=== PATIENT | male | born 1945 | race Caucasian/White ===

== ENCOUNTER 2018-04-24 13:03 | Emergency (ER) | payer OTHER ==
[2018-04-24] MEDS ORDERED: ALBUTEROL 2.5 MG/3 ML NEB SOL ONE (13:48)
[2018-04-24] MEDS ORDERED: NA CHLORIDE 0.9% 500 ML ONE (13:48)
[2018-04-24] MEDS ORDERED: METHYLPREDNISOLONE 125 MG INJ ONE (13:48)
[2018-04-24] MEDS ORDERED: predniSONE 20 MG TAB ONE (13:48)
[2018-04-24] MEDS ORDERED: IPRATROPIUM BROM 0.5MG/2.5ML ONE (13:48)
--- NOTE | 2018-04-24 14:12 | RAD REPORT ---
EXAM DESCRIPTION: RAD - Chest Pa And Lat (2 Views) - 04/24/2018 2:02 pm CLINICAL HISTORY: COUGH Chest pain. COMPARISON: Chest Single View dated 01/14/2017; Chest Single View dated 01/13/2017; CHEST PA AND LAT 2 VIEW dated 02/28/2013; CHEST SINGLE VIEW dated 11/29/2011 FINDINGS: Ill-defined infiltrate is suspected in the lateral left lung base associated with trace pl eural fluid, likely representing pneumonia. The heart is upper limit normal in size. No displaced fra ctures. Cervical hardware plate is noted. IMPRESSION: Small left lateral lung base pneumonia.
--- NOTE | 2018-04-24 14:27 | EDPHYS ---
Physician Documentation [facility] Name: Fito Oneal Age: 73 yrs Sex: Male : 1945 Arrival Date: 04/24/2018 Time: 13:06 Bed 30 Private MD: Owen Nolan H ED Physician Mulugeta Gorman HPI: 04/24 13:39 This 73 yrs old Male presents to ER via Ambulatory with complaints of lokesh Breathing Difficulty. 13:39 The patient has shortness of breath at rest. Onset: The symptoms/episode began/occurred lokesh 2 day(s) ago. Duration: The symptoms are continuous, and are steadily getting worse. The patient's shortness of breath has no apparent modifying factors. Associated signs and symptoms: The patient has no apparent associated signs or symptoms. Severity of symptoms: At their worst the symptoms were mild moderate in the emergency department the symptoms are unchanged. The patient has not experienced similar symptoms in the past. Historical: - Allergies: 13:12 No Known Allergies; hj - Home Meds: 13:12 lansoprazole 30 mg Oral cpDR 1 cap once daily [Active]; Xarelto 20 mg oral tab 1 tab hj once daily [Active]; Lantus Solostar 100 unit/mL (3 mL) subcutaneous inpn [Active]; atorvastatin 10 mg Oral tab 1 tab once daily [Active]; lisinopril 40 mg Oral tab 1 tab once daily [Active]; furosemide 40 mg Oral tab 1 tab once daily [Active]; tamsulosin 0.4 mg Oral cp24 2 caps once daily [Active]; sotalol 80 mg Oral tab 1 tab daily [Active]; metformin 500 mg Oral Tb24 3 tabs once daily [Active]; gabapentin 300 mg Oral cap 1 cap twice a day [Active]; - PMHx: 13:12 Diabetes - NIDDM; Hypertension; hj - PSHx: 13:12 Heart stents; Left Hand; ACDF; hj - Immunization history:: Adult Immunizations up to date. - Social history:: Smoking status: Patient/guardian denies using tobacco, Patient/guardian denies using alcohol. - Ebola Screening: : Patient negative for fever greater than or equal to 101.5 degrees Fahrenheit, and additional compatible Ebola Virus Disease symptoms Patient denies exposure to infectious person Patient denies travel to an Ebola-affected area in the 21 days before illness onset. - Family history:: not pertinent. ROS: 13:39 Constitutional: Negative for fever, chills, and weight loss, Eyes: Negative for injury, lokesh pain, redness, and discharge, ENT: Negative for injury, pain, and discharge, Neck: Negative for injury, pain, and swelling, Cardiovascular: Negative for chest pain, palpitations, and edema, Abdomen/GI: Negative for abdominal pain, nausea, vomiting, diarrhea, and constipation, Back: Negative for injury and pain, : Negative for injury, bleeding, discharge, and swelling, MS/Extremity: Negative for injury and deformity, Skin: Negative for injury, rash, and discoloration, Neuro: Negative for headache, weakness, numbness, tingling, and seizure, Psych: Negative for depression, anxiety, suicide ideation, homicidal ideation, and hallucinations, Allergy/Immunology: Negative for hives, rash, and allergies, Endocrine: Negative for neck swelling, polydipsia, polyuria, polyphagia, and marked weight changes. 13:39 Respiratory: Positive for cough, shortness of breath, at rest. wheezing, inspiratory, expiratory. Exam: 13:39 Constitutional: This is a well developed, well nourished patient who is awake, alert, lokesh and in no acute distress. Head/Face: Normocephalic, atraumatic. Eyes: Pupils equal round and reactive to light, extra-ocular motions intact. Lids and lashes normal. Conjunctiva and sclera are non-icteric and not injected. Cornea within normal limits. Periorbital areas with no swelling, redness, or edema. ENT: Nares patent. No nasal discharge, no septal abnormalities noted. Tympanic membranes are normal and external auditory canals are clear. Oropharynx with no redness, swelling, or masses, exudates, or evidence of obstruction, uvula midline. Mucous membranes moist. Neck: Trachea midline, no thyromegaly or masses palpated, and no cervical lymphadenopathy. Supple, full range of motion without nuchal rigidity, or vertebral point tenderness. No Meningismus. Chest/axilla: Normal chest wall appearance and motion. Nontender with no deformity. No lesions are appreciated. Cardiovascular: Regular rate and rhythm with a normal S1 and S2. No gallops, murmurs, or rubs. Normal PMI, no JVD. No pulse deficits. Abdomen/GI: Soft, non-tender, with normal bowel sounds. No distension or tympany. No guarding or rebound. No evidence of tenderness throughout. Back: No spinal tenderness. No costovertebral tenderness. Full range of motion. Male : Normal genitalia with no discharge or lesions. Skin: Warm, dry with normal turgor. Normal color with no rashes, no lesions, and no evidence of cellulitis. MS/ Extremity: Pulses equal, no cyanosis. Neurovascular intact. Full, normal range of motion. Neuro: Awake and alert, GCS 15, oriented to person, place, time, and situation. Cranial nerves II-XII grossly intact. Motor strength 5/5 in all extremities. Sensory grossly intact. Cerebellar exam normal. Normal gait. Psych: Awake, alert, with orientation to person, place and time. Behavior, mood, and affect are within normal limits. 13:39 Respiratory: mild respiratory distress is noted, Respirations: labored breathing, that is mild. 13:42 Musculoskeletal/extremity: DVT Exam: No signs of deep vein thrombosis. no pain, no lokesh swelling, no tenderness, negative Homans' sign noted on exam, no appreciated bluish discoloration, no erythema, no increased warmth. Vital Signs: 13:13 BP 149 / 87; Pulse 67; Resp 18; Temp 97.7; Pulse Ox 97% on R/A; Weight 95.25 kg; Height 5 ft. 9 in. (175.26 cm); Pain 0/10; 13:33 BP 144 / 87; Pulse 83; Resp 18; Pulse Ox 97% on R/A; kr2 14:44 BP 162 / 82; Pulse 68; Resp 18; Pulse Ox 100% on R/A; kr2 16:37 BP 148 / 80; Pulse 70; Resp 17; Pulse Ox 100% on R/A; kr2 13:13 Body Mass Index 31.01 (95.25 kg, 175.26 cm) MDM: 13:18 Patient medically screened. [facility] 13:39 Data reviewed: vital signs, nurses notes, lab test result(s), EKG, radiologic studies, [facility] plain films. 04/24 13:39 Order name: Basic Metabolic Panel; Complete Time: 16:02 [facility] 04/24 13:39 Order name: CBC with Diff; Complete Time: 16:02 [facility] 04/24 13:39 Order name: Ckmb; Complete Time: 16:02 [facility] 04/24 13:39 Order name: CPK; Complete Time: 16:02 [facility] 04/24 13:39 Order name: LFT's; Complete Time: 16:02 [facility] 04/24 13:39 Order name: Magnesium; Complete Time: 16:02 [facility] 04/24 13:39 Order name: NT PRO-BNP; Complete Time: 16:02 [facility] 04/24 13:39 Order name: PT-INR; Complete Time: 16:02 [facility] 04/24 13:39 Order name: Ptt, Activated; Complete Time: 16:02 [facility] 04/24 13:39 Order name: Troponin (emerg Dept Use Only); Complete Time: 16:02 [facility] 04/24 13:39 Order name: Blood Culture Adult (2) [facility] 04/24 13:39 Order name: Flu; Complete Time: 16:02 [facility] 04/24 14:11 Order name: TSH; Complete Time: 16:02 [facility] 04/24 16:17 Order name: Urine Dipstick--Ancillary (enter results) 04/24 13:39 Order name: EKG; Complete Time: 13:39 [facility] 04/24 13:39 Order name: Chest Pa And Lat (2 Views) XRAY; Complete Time: 14:17 [facility] 04/24 14:12 Order name: Echo w/ Doppler [facility] 04/24 14:33 Order name: CONS Physician Consult [facility] 04/24 14:33 Order name: CONS Physician Consult [facility] 04/24 16:19 Order name: Procalcitonin; Complete Time: 16:21 [facility] 04/24 16:32 Order name: Urine Dipstick-Ancillary [facility] 04/24 13:39 Order name: Cardiac monitoring; Complete Time: 14:35 [facility] 04/24 13:39 Order name: EKG - Nurse/Tech; Complete Time: 14:35 [facility] 04/24 13:39 Order name: IV Saline Lock; Complete Time: 14:35 [facility] 04/24 13:39 Order name: Labs collected and sent; Complete Time: 14:35 [facility] 04/24 13:39 Order name: O2 Per Protocol; Complete Time: 14:35 [facility] 04/24 13:39 Order name: O2 Sat Monitoring; Complete Time: 14:35 [facility] 04/24 13:39 Order name: Urine Dipstick-Ancillary (obtain specimen); Complete Time: 16:27 lokesh Administered Medications: Discontinued: NS 0.9% 1000 ml IV at 125 ml/hr continuous 14:15 Drug: NS 0.9% 500 ml Route: IV; Rate: bolus; Site: right antecubital; kr2 15:14 Follow up: Response: No adverse reaction; IV Status: Completed infusion kr2 14:15 Drug: Albuterol - atroVENT (3:1) (2.5 mg - 0.5 mg) 3 ml Route: Nebulizer; kr2 15:14 Follow up: Response: No adverse reaction kr2 14:31 Drug: predniSONE 40 mg Route: PO; kr2 15:15 Follow up: Response: No adverse reaction kr2 14:32 Drug: SOLU-Medrol 125 mg Route: IVP; Site: right antecubital; kr2 15:15 Follow up: Response: No adverse reaction kr2 14:42 Drug: Rocephin - (cefTRIAXone) 2 grams Route: IVPB; Infused Over: 30 mins; Site: right kr2 antecubital; 15:14 Follow up: Response: No adverse reaction; IV Status: Completed infusion kr2 15:15 Drug: NS 0.9% 1000 ml Route: IV; Rate: 125 ml/hr; Site: right antecubital; kr2 16:28 Follow up: Response: No adverse reaction; IV Status: Order to discontinue infusion kr2 15:15 Drug: Zithromax 500 mg Route: IVPB; Infused Over: 1 hrs; Site: right antecubital; kr2 16:26 Follow up: Response: No adverse reaction; IV Status: Completed infusion kr2 16:18 CANCELLED (Duplicate Order): Lovenox 1 mg/kg Sub-Q once lokesh 16:26 Drug: Augmentin 875 mg Route: PO; kr2 16:38 Follow up: Response: Medication administered at discharge. kr2 Disposition: 04/24/18 16:24 Patient has left against medical advice. Impression: Dyspnea, Pneumonia due to other specified bacteria, Atrial fibrillation and flutter, Type 2 diabetes mellitus. - Patients states they are going to Home. - Condition is Stable. - Discharge Instructions: Atrial Fibrillation, Type 2 Diabetes Mellitus, Adult, Pneumonia, Adult, Pneumonia, Adult, [id number], Type 2 Diabetes Mellitus, Adult, [id number], Atrial Fibrillation, [id number]. - Prescriptions for Xarelto 20 mg Oral tablet - take 1 tablet by ORAL route once daily; 30 tablet. sotalol 80 mg Oral tablet - take 1 tablet by ORAL route At bedtime; 30 tablet. Augmentin 875- 125 mg Oral Tablet - take 1 tablet by ORAL route every 12 hours for 10 days; 20 tablet. Albuterol Sulfate 2.5 mg /3 mL (0.083 %) Inhalation Solution for Nebulization - inhale 1 unit by NEBULIZATION route every 8 hours As needed; 1 box. Prednisone 20 mg Oral Tablet - take 2 tablet by ORAL route once daily for 5 days; 10 tablet. Albuterol Sulfate 90 mcg/actuation - inhale 1-2 puff by INHALATION route every 4-6 hours; 1 Inhaler. Follow up: Owen Nolan DO; When: 2 - 3 days; Reason: Recheck today's complaints, Continuance of care, Re-evaluation by your physician. Follow up: Hugo Up MD; When: 2 - 3 days; Reason: Recheck today's complaints, Continuance of care, Re-evaluation by your physician. - Problem is new. - Symptoms have improved. Signatures: Dispatcher [employer] EDMS Mulugeta Gorman MD MD cha Gallardo, Ana ag Joaquin, Henry, RN RN Donna Gonzalez RN RN kr2 Corrections: (The following items were deleted from the chart) 15:35 14:26 Hospitalization Ordered by Mariana Vick MD for Inpatient Admission. Preliminary ag diagnosis is Dyspnea, unspecified; Dyspnea; Chronic obstructive pulmonary disease with (acute) exacerbation; Atrial fibrillation and flutter; Unspecified bacterial pneumonia. Bed requested for Telemetry/MedSurg (Inpatient). Status is Inpatient Admission. Condition is Fair. Problem is new. Symptoms have improved. UTI on Admission? No. lokesh 16:18 16:02 Lovenox 1 mg/kg Sub-Q once ordered. [facility] 16:22 15:35 04/24/2018 14:26 Hospitalization Ordered by Mariana Vick MD for Inpatient lokesh Admission. Preliminary diagnosis is Dyspnea, unspecified; Dyspnea; Chronic obstructive pulmonary disease with (acute) exacerbation; Atrial fibrillation and flutter; Unspecified bacterial pneumonia. Bed requested for Telemetry/MedSurg (Inpatient). Status is Inpatient Admission. Condition is Fair. Problem is new. Symptoms have improved. UTI on Admission? No. ag 16:38 16:24 04/24/2018 16:24 Patients has left against medical advice. Impression: Dyspnea; kr2 Pneumonia due to other specified bacteria; Atrial fibrillation and flutter; Type 2 diabetes mellitus. Patient states they are going to Home. Condition is Stable. Prescriptions for Albuterol Sulfate 2.5 mg /3 mL (0.083 %) Inhalation Solution for Nebulization - inhale 1 unit by NEBULIZATION route every 8 hours As needed; 1 box, Prednisone 20 mg Oral Tablet - take 2 tablet by ORAL route once daily for 5 days; 10 tablet, Albuterol Sulfate 90 mcg/actuation - inhale 1-2 puff by INHALATION route every 4-6 hours; 1 Inhaler, Zithromax 500 mg Oral Tablet - take 1 tablet by ORAL route once daily for 5 days; 5 tabletFollow up: Owen Nolan; When: 2 - 3 days; Reason: Recheck today's complaints, Continuance of care, Re-evaluation by your physician. Follow up: Hugo Up; When: 2 - 3 days; Reason: Recheck today's complaints, Continuance of care, Re-evaluation by your physician. Problem is new. Symptoms have improved. lokesh
--- NOTE | 2018-04-24 14:27 | ER ---
Nurse's Notes [facility] Name: Fito Oneal Age: 73 yrs Sex: Male : 1945 Arrival Date: 04/24/2018 Time: 13:06 Bed 30 Private MD: Owen Nolan H Diagnosis: Dyspnea;Pneumonia due to other specified bacteria;Atrial fibrillation and flutter;Type 2 diabetes mellitus Presentation: 04/24 13:08 Presenting complaint: Patient states: 9 days ago, i started having cough and SOB, hj productive cough with whitish yellow phlegm, reports fever and chills; took allergy meds but helping;. Transition of care: patient was not received from another setting of care. Onset of symptoms was April 24, 2018. Risk Assessment: Do you want to hurt yourself or someone else? Patient reports no desire to harm self or others. Initial Sepsis Screen: Does the patient meet any 2 criteria? No. Patient's initial sepsis screen is negative. Does the patient have a suspected source of infection? No. Patient's initial sepsis screen is negative. Care prior to arrival: None. 13:08 Method Of Arrival: Ambulatory 13:08 Acuity: DARON 3 hj Triage Assessment: 13:13 General: Appears in no apparent distress. uncomfortable, Behavior is calm, cooperative, hj appropriate for age. Pain: Denies pain. Respiratory: Reports cough that is Onset: The symptoms/episode began/occurred the patient has mild shortness of breath. Historical: - Allergies: 13:12 No Known Allergies; hj - Home Meds: 13:12 lansoprazole 30 mg Oral cpDR 1 cap once daily [Active]; Xarelto 20 mg oral tab 1 tab hj once daily [Active]; Lantus Solostar 100 unit/mL (3 mL) subcutaneous inpn [Active]; atorvastatin 10 mg Oral tab 1 tab once daily [Active]; lisinopril 40 mg Oral tab 1 tab once daily [Active]; furosemide 40 mg Oral tab 1 tab once daily [Active]; tamsulosin 0.4 mg Oral cp24 2 caps once daily [Active]; sotalol 80 mg Oral tab 1 tab daily [Active]; metformin 500 mg Oral Tb24 3 tabs once daily [Active]; gabapentin 300 mg Oral cap 1 cap twice a day [Active]; - PMHx: 13:12 Diabetes - NIDDM; Hypertension; hj - PSHx: 13:12 Heart stents; Left Hand; ACDF; hj - Immunization history:: Adult Immunizations up to date. - Social history:: Smoking status: Patient/guardian denies using tobacco, Patient/guardian denies using alcohol. - Ebola Screening: : Patient negative for fever greater than or equal to 101.5 degrees Fahrenheit, and additional compatible Ebola Virus Disease symptoms Patient denies exposure to infectious person Patient denies travel to an Ebola-affected area in the 21 days before illness onset. - Family history:: not pertinent. Screenin:12 Abuse screen: Denies threats or abuse. Denies injuries from another. Nutritional hj screening: No deficits noted. Tuberculosis screening: No symptoms or risk factors identified. Fall Risk None identified. Assessment: 13:13 Respiratory: Airway is patent Respiratory effort is even, unlabored, Respiratory hj pattern is regular, symmetrical, 13:13 Cardiovascular: Rhythm is. hj 13:30 General: Appears in no apparent distress. comfortable, well groomed, well developed, kr2 well nourished, Behavior is calm, cooperative, appropriate for age. Pain: Denies pain. Neuro: Level of Consciousness is awake, alert, obeys commands, Oriented to person, place, time, situation. Cardiovascular: Heart tones S1 S2 Capillary refill < 3 seconds in bilateral fingers Patient's skin is warm and dry. Rhythm is regular. Respiratory: Airway is patent Respiratory effort is even, unlabored, Respiratory pattern is regular, symmetrical. Respiratory: Reports cough that is productive, since 9 days ago. GI: Abdomen is round non-distended. : No signs and/or symptoms were reported regarding the genitourinary system. EENT: Reports nasal discharge that is watery since 9 days ago. Derm: Skin is intact, is healthy with good turgor, Skin is pink, warm \T\ dry. Musculoskeletal: Circulation, motion, and sensation intact. 14:30 Reassessment: Patient appears in no apparent distress at this time. Patient is alert, kr2 oriented x 3, equal unlabored respirations, skin warm/dry/pink. Patient denies pain at this time. 15:26 Reassessment: Patient appears in no apparent distress at this time. Patient is alert, kr2 oriented x 3, equal unlabored respirations, skin warm/dry/pink. Patient denies pain at this time. 16:15 Reassessment: Patient states that there is no way for him to stay in the hospital kr2 because he has to pick his grandkids and there is no one else to pick them up otherwise he would stay. Dr. Gorman notified. AMA form signed. 16:35 Reassessment: Patient appears in no apparent distress at this time. Patient is alert, kr2 oriented x 3, equal unlabored respirations, skin warm/dry/pink. Patient denies pain at this time. Patient states feeling better. Vital Signs: 13:13 BP 149 / 87; Pulse 67; Resp 18; Temp 97.7; Pulse Ox 97% on R/A; Weight 95.25 kg; Height hj 5 ft. 9 in. (175.26 cm); Pain 0/10; 13:33 BP 144 / 87; Pulse 83; Resp 18; Pulse Ox 97% on R/A; kr2 14:44 BP 162 / 82; Pulse 68; Resp 18; Pulse Ox 100% on R/A; kr2 16:37 BP 148 / 80; Pulse 70; Resp 17; Pulse Ox 100% on R/A; kr2 13:13 Body Mass Index 31.01 (95.25 kg, 175.26 cm) ED Course: 13:06 Patient arrived in ED. rg4 13:07 Owen Nolan DO is Private Physician. rg4 13:10 Triage completed. hj 13:13 Arm band placed on right wrist. hj 13:13 Patient has correct armband on for positive identification. Bed in low position. Call light in reach. Side rails up X 1. 13:18 Donna Gonzalez, RN is Primary Nurse. kr2 13:18 Mulugeta Gorman MD is Attending Physician. [facility] [place] 13:57 Patient moved to radiology via wheelchair. 1 13:58 X-ray completed. Patient tolerated procedure well. Patient moved back from radiology. 1 13:58 EKG done, by wastewater technician. reviewed by Mulugeta Gorman MD. at1 14:01 Chest Pa And Lat (2 Views) XRAY In Process Unspecified. EDMS 14:15 Inserted saline lock: 20 gauge in right antecubital area, using aseptic technique. kr2 Blood collected. 14:25 Mariana Vick MD is Hospitalizing Provider. lokesh 16:22 Owen Nolan DO is Referral Physician. lokesh 16:23 Hugo Up MD is Referral Physician. lokesh 16:36 No provider procedures requiring assistance completed. IV discontinued, intact, kr2 bleeding controlled, No redness/swelling at site. Pressure dressing applied. Administered Medications: Discontinued: NS 0.9% 1000 ml IV at 125 ml/hr continuous 14:15 Drug: NS 0.9% 500 ml Route: IV; Rate: bolus; Site: right antecubital; kr2 15:14 Follow up: Response: No adverse reaction; IV Status: Completed infusion kr2 14:15 Drug: Albuterol - atroVENT (3:1) (2.5 mg - 0.5 mg) 3 ml Route: Nebulizer; kr2 15:14 Follow up: Response: No adverse reaction kr2 14:31 Drug: predniSONE 40 mg Route: PO; kr2 15:15 Follow up: Response: No adverse reaction kr2 14:32 Drug: SOLU-Medrol 125 mg Route: IVP; Site: right antecubital; kr2 15:15 Follow up: Response: No adverse reaction kr2 14:42 Drug: Rocephin - (cefTRIAXone) 2 grams Route: IVPB; Infused Over: 30 mins; Site: right kr2 antecubital; 15:14 Follow up: Response: No adverse reaction; IV Status: Completed infusion kr2 15:15 Drug: NS 0.9% 1000 ml Route: IV; Rate: 125 ml/hr; Site: right antecubital; kr2 16:28 Follow up: Response: No adverse reaction; IV Status: Order to discontinue infusion kr2 15:15 Drug: Zithromax 500 mg Route: IVPB; Infused Over: 1 hrs; Site: right antecubital; kr2 16:26 Follow up: Response: No adverse reaction; IV Status: Completed infusion kr2 16:18 CANCELLED (Duplicate Order): Lovenox 1 mg/kg Sub-Q once lokesh 16:26 Drug: Augmentin 875 mg Route: PO; kr2 16:38 Follow up: Response: Medication administered at discharge. kr2 Outcome: 14:26 Decision to Hospitalize by Provider. lokesh 16:36 Discharged to home ambulatory. kr2 16:36 Condition: good 16:36 Discharge instructions given to patient, Instructed on discharge instructions, follow up and referral plans. medication usage, Demonstrated understanding of instructions, follow-up care, medications, Prescriptions given X 7 16:38 Patient left the ED. kr2 Signatures: Dispatcher [employer] EDMS Mulugeta Gorman MD MD cha Harvey, Martha 1 Gladys nicholas, jammer operator EKG Tat1 Rico Castillo RN RN Jennifer Morataya 4 Donna Gonzalez RN RN kr2 Corrections: (The following items were deleted from the chart) 13:16 13:13 Pulse 67bpm; Resp 18bpm; Pulse Ox 97% RA; Temp 97.7F; 95.25 kg; Height 5 ft. 9 hj in.; BMI: 31.0; Pain 0/10; hj 14:48 14:44 BP 182 / 106; Pulse 68bpm; Resp 18bpm; Pulse Ox 100% RA; kr2 kr2
[2018-04-24 14:39] LABS: Absolute Lymphocytes (CBC) 1.2 K/uL (0.7-4.9); Absolute Monocytes 0.4 K/uL (0.1-1.3); Basophils % 0.7 % (0-1.3); Eosinophils % 2.9 % (0-4.4); Lymphocytes % 20.8 % (15.3-44.8); MCH 30.6 pg (27.0-35.0); MCV 93.7 fL (80-100); MPV 9.5 fL (7.6-11.3); Monocytes % 6.8 % (3.3-12.3); RBC Red Blood Cell Count 5.12 M/uL (4.33-5.43)
[2018-04-24] MEDS ORDERED: AZITHROMYCIN 500 MG/250 ML BAG ONE (14:41)
[2018-04-24] MEDS ORDERED: CEFTRIAXONE/SWI 1gm 1 GM/10 ML SYR ONE (14:41)
[2018-04-24 14:43] LABS: Protime INR 1.53
[2018-04-24] MEDS ORDERED: ACETAMINOPHEN 500 MG TAB PO PRN (14:54)
[2018-04-24] MEDS ORDERED: ONDANSETRON 4 MG/2 ML VIAL IV PRN (14:54)
[2018-04-24] MEDS ORDERED: GLUCAGON 1 MG/VIAL IM PRN (14:59)
[2018-04-24] MEDS ORDERED: D50W 25 GM/50 ML SYRINGE IV PRN (14:59)
[2018-04-24 15:03] LABS: Albumin 3.5 g/dL (3.4-5.0); Bilirubin Direct 0.2 mg/dL (0-0.2); Bilirubin Total 0.4 mg/dL (0.2-1.0); CKMB Creatine Kinase MB 2.7 ng/mL (0.3-3.6); Magnesium 1.9 mg/dL (1.8-2.4); Potassium 4.7 mmol/L (3.5-5.1); Protein, Total 7.2 g/dL (6.4-8.2)
--- NOTE | 2018-04-24 15:18 | P.HP ---
Certification for Inpatient Patient admitted to: Observation With expected LOS: <2 Midnights Patient will require the following post-hospital care: None Practitioner: I am a practitioner with admitting privileges, knowledge of patient current condition, hospital course, and medical plan of care. Services: Services provided to patient in accordance with Admission requirements found in Title 42 Section 412.3 of the Code of Federal Regulations Patient History Date of Service: 04/24/18 Primary Care Provider: Dr Nolan, Cardio - Dr Gresham Reason for admission: COPD exacerbation History of Present Illness: 73 y/o M with significant H/o COPD, Afib, HTN and DM who presented to the ED with SOB. SOB started 2 days ago and progressively worse. Reports of having cough, congestion and white yellowish Phelgm. Also complains of having some fever and chills at home. Took allergy medication and felt better but then got worse and decided to come to the ER. No other complains to offer. Denies N/V/CP at this time. Allergies No Known Allergies Allergy (Unverified 11/29/11 08:41) Home Medications: Flomax 0.4 mg PO DAILY 11/29/11 Gabapentin 300 mg PO BID 11/29/11 Lipitor 10 mg PO DAILY 11/29/11 Metformin HCl 500 mg PO DAILY 11/29/11 Niaspan 500 mg PO BID 11/29/11 Plavix 75 mg PO DAILY 11/29/11 Aspirin [Ecotrin] 325 mg PO DAILY #0 tablet. 12/01/11 Lantus 20 units SQ BREAKFAST #1 12/01/11 Sotalol HCl [Betapace*] 80 mg PO DAILY 01/13/17 Furosemide 40 mg PO DAILY PRN #15 tablet 01/14/17 - Past Medical/Surgical History Diabetic: Yes -: high blood pressure -: diabetes -: Afib -: CHF -: heart stent -: neck fusion -: right hand surgery - Family History Mother -: Lung disease Notes: mesothelioma Father -: Diabetes, Cancer - Social History Alcohol use: No CD- Drugs: No Caffeine use: No Review of Systems General: As per HPI Physical Examination - Physical Exam General: Alert, In no apparent distress, Acute distress HEENT: Atraumatic Neck: Supple, 2+ carotid pulse no bruit, No LAD, Without JVD or thyroid abnormality Respiratory: Normal air movement, Expiratory wheezes, Inspiratory wheezes Cardiovascular: Regular rate/rhythm, Normal S1 S2 Gastrointestinal: Normal bowel sounds, No tenderness Musculoskeletal: No tenderness Integumentary: No rashes Neurological: Normal speech, Normal strength at 5/5 x4 extr, Normal tone Lymphatics: No axilla or inguinal lymphadenopathy - Studies Laboratory Data (last 24 hrs) 04/24/18 14:15: PT 18.1 H, INR 1.53, APTT 30.0 04/24/18 14:15: WBC 5.8, Hgb 15.7, Hct 48.0, Plt Count 165 04/24/18 14:15: Sodium 142, Potassium 4.7, BUN 29 H, Creatinine 1.40 H, Glucose 184 H, Magnesium 1.9, Total Bilirubin 0.4, AST 17, ALT 27, Alkaline Phosphatase 99 Assessment and Plan - Problems (Diagnosis) (1) COPD (chronic obstructive pulmonary disease) Status: Acute Plan: COPD exacerbation. Most likely viral illness. -Procal Pending -Xray with Small lung base PNA -Duonebs, steriods and oxygen -IV antibiotics till procal -Sputum Culture -Pulm Consulted. Qualifiers: COPD type: COPD with acute exacerbation Qualified Code(s): J44.1 - Chronic obstructive pulmonary disease with (acute) exacerbation (2) PNA (pneumonia) Status: Acute Plan: PNA on the xray -IV abx for now -Procal and culture pending Qualifiers: Pneumonia type: due to unspecified organism (3) A-fib Status: Chronic Plan: Chronic Afib -On sotalol and Anticoagulation -Restart here Qualifiers: Atrial fibrillation type: chronic Qualified Code(s): I48.2 - Chronic atrial fibrillation (4) HTN (hypertension) Status: Chronic Plan: BP stable -Restart home medication Qualifiers: Hypertension type: essential hypertension Qualified Code(s): I10 - Essential (primary) hypertension (5) Diabetes Status: Chronic Plan: ISS Qualifiers: Diabetes mellitus type: type 2 Diabetes mellitus exterminator termite insulin use: without exterminator termite use Diabetes mellitus complication status: without complication Qualified Code(s): E11.9 - Type 2 diabetes mellitus without complications Discharge Plan: Home Plan to discharge in: 48 Hours - Advance Directives Does patient have a Living Will: Yes Does patient have a Durable POA for Healthcare: Yes - Code Status/Comfort Care Code Status Assessed: Yes Critical Care: No
--- NOTE | 2018-04-24 15:36 | ECHO ---
HEIGHT: 5 ft 9 in WEIGHT: 210 lb oz DATE OF STUDY: 04/24/[address]: Mulugeta Gorman MD 2-DIMENSIONAL: YES M.MODE: YES DOPPLER: YES COLOR FLOW: YES TDS: NO PORTABLE: NO DEFINITY: NO BUBBLE STUDY: NO DIAGNOSIS: ATRIAL FIBRILLATION CARDIAC HISTORY: CATHERIZATION: NO SURGERY: NO PROSTHETIC VALVE: NO PACEMAKER: NO MEASUREMENTS (cm) DIASTOLIC (NORMALS) SYSTOLIC (NORMALS) IVSd 1.0 (0.6-1.2) LA Diam 4.0 (1.9-4.0) LVEF 71% LVIDd 4.6 (3.5-5.7) LVIDs 2.7 (2.0-3.5) %FS 40% LVPWd 1.3 (0.6-1.2) Ao Diam 2.9 (2.0-3.7) 2 DIMENSIONAL ASSESSMENT: RIGHT ATRIUM: NORMAL LEFT ATRIUM: NORMAL RIGHT VENTRICLE: NORMAL LEFT VENTRICLE: NORMAL SIZE TRICUSPID VALVE: NORMAL MITRAL VALVE: MITRAL ANNULAR CALCIFICATION PULMONIC VALVE: NORMAL AORTIC VALVE: NORMAL PERICARDIAL EFFUSION: NONE AORTIC ROOT: NORMAL LEFT VENTRICULAR WALL MOTION: NORMAL EJECTION FRACTION, DECREASED LEFT VENTRICULAR COMPLIANCE. DOPPLER/COLOR FLOW: MILD TRICUSPID REGURGITATION. COMMENTS: DECREASED LEFT VENTRICULAR COMPLIANCE. NORMAL EJECTION FRACTION WITH LEFT VENTRICULAR SIZE. MILD TRICUSPID REGURGITATION. ATRIAL FIBRILLATION. MODERATE PULMONARY HYPERTENSION, RIGHT VENTRICULAR SYSTOLIC PRESSURE 50mmHg. NO THROMBUS. TECHNOLOGIST: DALI HAN
[2018-04-24] MEDS ORDERED: Levofloxacin500mg IV 500 MG/100 ML BAG IV SCH (16:00)
[2018-04-24] MEDS ORDERED: ENOXAPARIN 40 MG/0.4 ML SQ SCH (16:00)
[2018-04-24] MEDS ORDERED: AMOX/K CLAV 875 MG TAB ONE (16:29)
[2018-04-24] MEDS ORDERED: INSULIN -REGULAR HUMAN 50 UNIT/0.5 ML ML SQ SCH (16:30)
[2018-04-24 16:32] LABS: Urine Blood NEGATIVE (NEG); Urine Glucose NEGATIVE (NEG); Urine Protein NEGATIVE (NEG); Urine pH 5.5 (5.0-7.0)
[2018-04-24 16:42] VITALS: TEMP 97.7
[2018-04-24 16:44] VITALS: O2SAT 100
[2018-04-24 16:45] VITALS: BP 148/80
[2018-04-24] MEDS ORDERED: IPRATROPIUM BROM 0.5MG/2.5ML NEB SCH (20:00)
[2018-04-24] MEDS ORDERED: LEVALBUTEROL 0.63 MG/3 ML NEB NEB SCH (20:00)
[2018-04-24] MEDS ORDERED: predniSONE 10 MG TAB PO SCH (21:00)
--- NOTE | 2018-04-25 09:25 | EKG ---
Test Date: 2018-04-24 Test Time: 13:49:22 Registered Land Surveyor: MILLICENT MEASUREMENT RESULTS: Intervals: Rate: 62 RI: QRSD: 72 QT: 394 QTc: 399 [place]: P: RI: QRS: 11 T: 62 INTERPRETIVE STATEMENTS: Atrial fibrillation Abnormal ECG Compared to ECG 01/14/2017 05:58:43 Sinus bradycardia no longer present Electronically Signed On 04-25-18 09:23:24 CDT by Imer Gresham
== END 2018-04-24 16:38 | disposition left against medical advice (07) ==
LOC: ER 13:03 → ERHOLD 14:28 → UNDOADMIN 14:28 → ER 16:38
DX: J15.8 Pneumonia due to other specified bacteria (principal); I48.91 Unspecified atrial fibrillation; I48.92 Unspecified atrial flutter; E11.9 Type 2 diabetes mellitus without complications; I10 Essential (primary) hypertension; Z95.818 Presence of other cardiac implants and grafts; Z79.4 Long term (current) use of insulin; Z79.01 Long term (current) use of anticoagulants
CPT/HCPCS: 36415; 71046; 80048; 80076; 81003; 82550; 82553; 83735; 83880; 84145; 84443; 84484; 85025; 85610; 85730; 87040 ×2; 87804 ×2; 93005; 93306; J0456; J0696; J2930; 94640; 96361; 96365; 96367; 96375; 99284; J7512

== ENCOUNTER 2018-08-23 13:56 | Inpatient (IN) | payer OTHER ==
[2018-08-23] MEDS ORDERED: FUROSEMIDE 40 MG/4 ML VIAL ONE (15:01)
[2018-08-23 15:12] LABS: Absolute Lymphocytes (CBC) 0.5 K/uL (0.7-4.9); Absolute Monocytes 0.6 K/uL (0.1-1.3); Absolute Neutrophil 9.2 K/uL (1.8-8.0); Basophils % 0.3 % (0-1.3); Hematocrit 49.8 % (39.6-49.0); Lymphocytes % 4.8 % (15.3-44.8); MCH 31.6 pg (27.0-35.0); MCV 93.8 fL (80-100); MPV 9.8 fL (7.6-11.3); Monocytes % 5.7 % (3.3-12.3)
[2018-08-23 15:30] LABS: ALT/SGPT 38 U/L (12-78); AST/SGOT 32 U/L (15-37); Albumin 3.4 g/dL (3.4-5.0); Alkaline Phosphatase 91 U/L (45-117); BUN Blood Urea Nitrogen 52 mg/dL (7-18); Bicarbonate 32 mmol/L (21-32); Bilirubin Direct 0.6 mg/dL (0-0.2); Bilirubin Total 1.3 mg/dL (0.2-1.0); NT PRO-BNP 3107 pg/mL (<450); Potassium 4.3 mmol/L (3.5-5.1); Protein, Total 8.8 g/dL (6.4-8.2); Sodium Level 128 mmol/L (136-145); Troponin (Emerg Dept Use Only) < 0.02 ng/mL (0.0-0.045)
[2018-08-23 15:32] LABS: Glucose Level 431 mg/dL (74-106)
--- NOTE | 2018-08-23 16:09 | RAD REPORT ---
EXAM DESCRIPTION: RAD - Chest Single View - 08/23/2018 3:22 pm CLINICAL HISTORY: Shortness of breath, bilateral lower extremity swelling, congestion, dyspnea COMPARISON: April 24, 2018 TECHNIQUE: AP portable chest image was obtained 1516 hours . FINDINGS: No focal mass or consolidation. Interstitial markings are prominent, similar or slightly i ncreased over comparison. Trachea is midline. Heart and vasculature are normal. No measurable pleural effusion and no pneumothorax. No acute bony abnormality seen. No acute aortic findings suspected. IMPRESSION: Prominent interstitial markings similar or slightly increased over comparison. Early interstitial edema or infiltrate suspected, particularly right base.
--- NOTE | 2018-08-23 16:47 | ER ---
Nurse's Notes [facility] Name: Fito Oneal Age: 73 yrs Sex: Male : 1945 Arrival Date: 08/23/2018 Time: 14:00 Bed 20 Private MD: Owen Nolan H Diagnosis: Unspecified combined systolic (congestive) and diastolic (congestive) heart failure;Pulmonary edema;Dyspnea, unspecified Presentation: 08/23 14:25 Presenting complaint: Patient states: SOB, BLE swelling, congestion, productive cough x sv 2 days. Transition of care: patient was not received from another setting of care. Onset of symptoms was August 20, 2018. Care prior to arrival: None. 14:25 Method Of Arrival: Wheelchair sv 14:25 Acuity: DARON 3 sv 19:18 Risk Assessment: Do you want to hurt yourself or someone else? Patient reports no jd3 desire to harm self or others. Initial Sepsis Screen: Does the patient meet any 2 criteria? No. Patient's initial sepsis screen is negative. Does the patient have a suspected source of infection? No. Patient's initial sepsis screen is negative. Historical: - Allergies: 14:26 No Known Allergies; sv - PMHx: 14:26 Diabetes - NIDDM; Hypertension; sv 14:35 CHF; sv - PSHx: 14:26 Heart stents; Left Hand; ACDF; sv - Immunization history:: Flu vaccine is up to date. - Social history:: Smoking status: Patient/guardian denies using tobacco. - Ebola Screening: : No symptoms or risks identified at this time. - Family history:: not pertinent. - Hospitalizations: : No recent hospitalization is reported. Screenin:58 Abuse screen: Denies threats or abuse. Denies injuries from another. Nutritional aj screening: No deficits noted. Tuberculosis screening: No symptoms or risk factors identified. Fall Risk None identified. Assessment: 14:58 General: Appears in no apparent distress. comfortable, Behavior is calm, cooperative, aj appropriate for age. Pain: Denies pain. Neuro: Level of Consciousness is awake, alert, obeys commands, Oriented to person, place, time, situation, Appropriate for age. Cardiovascular: Denies chest pain, Capillary refill < 3 seconds in bilateral fingers Patient's skin is warm and dry. Respiratory: Reports shortness of breath cough that is productive, Airway is patent Respiratory effort is even, unlabored, Respiratory pattern is regular, symmetrical, Breath sounds with crackles bilaterally. the patient has moderate shortness of breath. GI: No signs and/or symptoms were reported involving the gastrointestinal system. Derm: Skin is intact, is healthy with good turgor, Skin is pink, warm \T\ dry. normal. 16:26 Reassessment: Patient appears in no apparent distress at this time. No changes from aj previously documented assessment. Patient and/or family updated on plan of care and expected duration. Pain level reassessed. Patient is alert, oriented x 3, equal unlabored respirations, skin warm/dry/pink. Patient denies pain at this time. Patient states symptoms have improved. 17:49 Reassessment: Patient appears in no apparent distress at this time. Patient and/or aj family updated on plan of care and expected duration. Pain level reassessed. Patient is alert, oriented x 3, equal unlabored respirations, skin warm/dry/pink. Patient has productive cough that continues but reports that he is feeling better since he arrived Patient states feeling better. Patient states symptoms have improved. 19:15 Reassessment: Patient appears in no apparent distress at this time. No changes from jd3 previously documented assessment. Patient and/or family updated on plan of care and expected duration. Pain level reassessed. Patient is alert, oriented x 3, equal unlabored respirations, skin warm/dry/pink. 20:00 Reassessment: Patient appears in no apparent distress at this time. No changes from jd3 previously documented assessment. Patient and/or family updated on plan of care and expected duration. Pain level reassessed. Patient is alert, oriented x 3, equal unlabored respirations, skin warm/dry/pink. report given to Orin SHEPPARD. Vital Signs: 14:27 BP 119 / 67; Pulse 94; Resp 22; Temp 97.1; Pulse Ox 85% on R/A; Weight 95.25 kg; Height sv 5 ft. 8 in. (172.72 cm); Pain 0/10; 15:55 BP 118 / 76; Pulse 97 MON; Resp 20; Pulse Ox 99% on 3 lpm NC; aj 16:26 BP 124 / 84; Pulse 96; Resp 22; Pulse Ox 98% on 3 lpm NC; aj 17:49 BP 120 / 59; Pulse 98; Resp 19; Pulse Ox 100% on 3 lpm NC; aj 18:38 BP 121 / 67; Pulse 97 MON; Resp 25; Pulse Ox 98% on 3 lpm NC; aj 19:15 BP 118 / 70; Pulse 102; Resp 16 S; Pulse Ox 96% on 3 lpm NC; jd3 20:02 BP 127 / 77; Pulse 101; Resp 18 S; Pulse Ox 95% on 3 lpm NC; jd3 14:27 Body Mass Index 31.93 (95.25 kg, 172.72 cm) sv 15:55 A fib aj 18:38 A fib aj 14:27 Pt placed on O2 \T\ 2L per NC. O2 sat up to 94%. sv ED Course: 14:00 Patient arrived in ED. mr 14:00 Owen Nolan DO is Private Physician. mr 14:26 Triage completed. sv 14:42 Kin Ye MD is Attending Physician. rn 14:44 Gladys Ferreira RN is Primary Nurse. aj 14:50 Initial lab(s) drawn, by me, sent to lab. First set of blood cultures drawn by me, Flu mh5 and/or RSV swab sent to lab. 14:58 Patient has correct armband on for positive identification. Placed in gown. Bed in low aj position. Call light in reach. Side rails up X 1. Adult w/ patient. ramp supervisor on. Pulse ox on. NIBP on. 14:59 Inserted saline lock: 20 gauge in right antecubital area, using aseptic technique. mh5 Blood collected. 15:00 Inserted saline lock: 20 gauge in right antecubital area, using aseptic technique. aj Blood collected. By Nisa library assistant. 15:03 Blood Culture Adult (2) Sent. mh5 15:03 BMP Sent. mh5 15:03 CBC with Diff Sent. mh5 15:03 Hepatic Function Sent. mh5 15:03 NT PRO-BNP Sent. mh5 15:03 Troponin (emerg Dept Use Only) Sent. mh5 15:05 Second set of blood cultures drawn by me. mh5 15:13 EKG done, by plant maintenance technician. reviewed by Kin Ye MD. at1 15:22 XRAY CXR (1 view) In Process Unspecified. EDMS 16:46 Aguilar Alvarez MD is Hospitalizing Provider. rn 19:18 Arm band placed on. jd3 20:00 No provider procedures requiring assistance completed. Patient admitted, IV remains in jd3 place. Administered Medications: 14:57 Drug: Lasix 40 mg Route: IVP; Site: right antecubital; aj Outcome: 16:46 Decision to Hospitalize by Provider. rn 20:01 Admitted to Tele accompanied by tech, via wheelchair, room 212, with oxygen, with jd3 chart, Report called to Orin SHEPPARD 20:01 Condition: stable 20:01 Instructed on the need for admit, Demonstrated understanding of instructions. 20:22 Patient left the ED. jd3 Signatures: Dispatcher [employer] EDMS Kimberley Moe RN RN sv Myers, Amanda, RN RN aj Rivera, Kin Paz MD MD rn Gonzales, Amanda, dormitory keeper EKG Tat1 Dominic, Heike mh5 Juan Pablo Park RN RN jd3 Corrections: (The following items were deleted from the chart) 14:35 14:27 BP 119 / 67; Pulse 94bpm; Resp 22bpm; Pulse Ox 88% RA; Temp 97.1F; 95.25 kg; sv Height 5 ft. 8 in.; BMI: 31.9; Pain 0/10; sv 15:55 15:55 BP 118 / 76; Pulse 97bpm; Monitor: A fibResp 20bpm; Pulse Ox 99% RA; aj aj
--- NOTE | 2018-08-23 16:47 | EDPHYS ---
Physician Documentation [facility] Name: Fito Oneal Age: 73 yrs Sex: Male : 1945 Arrival Date: 08/23/2018 Time: 14:00 Bed 20 Private MD: Owen Nolan H ED Physician Kin Ye HPI: 08/23 15:20 This 73 yrs old Male presents to ER via Wheelchair with complaints of Sob. rn 15:20 The patient has shortness of breath at rest. rn 15:22 Onset: The symptoms/episode began/occurred 2 day(s) ago. Duration: The symptoms are rn continuous. Severity of symptoms: At their worst the symptoms were moderate in the emergency department the symptoms are unchanged. The patient has experienced similar episodes in the past. REports sob and cough for 2-3 days, no fever, feels similar to previous episodes when had fluid overload. . Historical: - Allergies: 14:26 No Known Allergies; sv - PMHx: 14:26 Diabetes - NIDDM; Hypertension; sv 14:35 CHF; sv - PSHx: 14:26 Heart stents; Left Hand; ACDF; sv - Immunization history:: Flu vaccine is up to date. - Social history:: Smoking status: Patient/guardian denies using tobacco. - Ebola Screening: : No symptoms or risks identified at this time. - Family history:: not pertinent. - Hospitalizations: : No recent hospitalization is reported. ROS: 15:22 Constitutional: Negative for fever, chills, and weight loss, Eyes: Negative for injury, rn pain, redness, and discharge, Neck: Negative for injury, pain, and swelling, Cardiovascular: Negative for chest pain, palpitations, + edema Respiratory: + sob and cough Abdomen/GI: Negative for abdominal pain, nausea, vomiting, diarrhea, and constipation, MS/Extremity: Negative for injury and deformity, Skin: Negative for injury, rash, and discoloration, Neuro: Negative for headache, weakness, numbness, tingling, and seizure. Exam: 15:22 Constitutional: This is a well developed, well nourished patient who is awake, alert, rn + mild respiratory distress Head/Face: Normocephalic, atraumatic. Eyes: Pupils equal round and reactive to light, extra-ocular motions intact. Lids and lashes normal. Conjunctiva and sclera are non-icteric and not injected. Cornea within normal limits. Periorbital areas with no swelling, redness, or edema. Neck: Trachea midline, no thyromegaly or masses palpated, and no cervical lymphadenopathy. Supple, full range of motion without nuchal rigidity, or vertebral point tenderness. No Meningismus. Cardiovascular: Irregular rhythm. No gallops, murmurs, or rubs. No JVD. No pulse deficits. Respiratory: + faint exp wheeze with mild tachypnea, no retractions, + bibasilar crackles Abdomen/GI: Soft, non-tender, with normal bowel sounds. No distension or tympany. No guarding or rebound. No evidence of tenderness throughout. MS/ Extremity: Pulses equal, no cyanosis. Neurovascular intact. Full, normal range of motion. Equal circumference. Neuro: Awake and alert, GCS 15, oriented to person, place, time, and situation. Cranial nerves II-XII grossly intact. Motor strength 5/5 in all extremities. Sensory grossly intact. Cerebellar exam normal. Normal gait. Vital Signs: 14:27 BP 119 / 67; Pulse 94; Resp 22; Temp 97.1; Pulse Ox 85% on R/A; Weight 95.25 kg; Height sv 5 ft. 8 in. (172.72 cm); Pain 0/10; 15:55 BP 118 / 76; Pulse 97 MON; Resp 20; Pulse Ox 99% on 3 lpm NC; aj 16:26 BP 124 / 84; Pulse 96; Resp 22; Pulse Ox 98% on 3 lpm NC; aj 17:49 BP 120 / 59; Pulse 98; Resp 19; Pulse Ox 100% on 3 lpm NC; aj 18:38 BP 121 / 67; Pulse 97 MON; Resp 25; Pulse Ox 98% on 3 lpm NC; aj 19:15 BP 118 / 70; Pulse 102; Resp 16 S; Pulse Ox 96% on 3 lpm NC; jd3 20:02 BP 127 / 77; Pulse 101; Resp 18 S; Pulse Ox 95% on 3 lpm NC; jd3 14:27 Body Mass Index 31.93 (95.25 kg, 172.72 cm) sv 15:55 A fib aj 18:38 A fib aj 14:27 Pt placed on O2 \T\ 2L per NC. O2 sat up to 94%. sv MDM: 14:42 Patient medically screened. rn 16:45 Differential diagnosis: Anemia CHF exacerbation, Myocardial Infarction pneumonia, rn Pneumothorax pulmonary edema. Data reviewed: vital signs, nurses notes, lab test result(s), radiologic studies, plain films, and as a result, I will admit patient. Counseling: I had a detailed discussion with the patient and/or guardian regarding: the historical points, exam findings, and any diagnostic results supporting the discharge/admit diagnosis, lab results, radiology results, the need for further work-up and treatment in the hospital. Response to treatment: the patient's symptoms have mildly improved after treatment. Admission orders: after a detailed discussion of the patient's condition and case, the admit orders are written by me. Special discussion:. 08/23 14:47 Order name: Blood Culture Adult (2) rn 08/23 14:47 Order name: BMP; Complete Time: 16:11 08/23 14:47 Order name: CBC with Diff; Complete Time: 18:56 rn 08/23 14:47 Order name: Hepatic Function; Complete Time: 16:11 08/23 14:47 Order name: NT PRO-BNP; Complete Time: 16:11 08/23 14:47 Order name: Troponin (emerg Dept Use Only); Complete Time: 16:11 08/23 14:47 Order name: XRAY CXR (1 view); Complete Time: 16:11 08/23 14:47 Order name: EKG; Complete Time: 14:47 rn 08/23 14:47 Order name: Cardiac monitoring; Complete Time: 14:57 rn 08/23 14:47 Order name: EKG - Nurse/Tech; Complete Time: 15:10 rn 08/23 14:47 Order name: Flu; Complete Time: 16:11 rn 08/23 15:16 Order name: CBC Smear Scan; Complete Time: 18:56 EDMS 08/23 16:29 Order name: Diet 2 Gm Sodium; Complete Time: 16:29 aj 08/23 14:47 Order name: IV Saline Lock; Complete Time: 14:58 rn 08/23 14:47 Order name: Labs collected and sent; Complete Time: 14:58 rn 08/23 14:47 Order name: O2 Per Protocol; Complete Time: 14:58 rn 08/23 14:47 Order name: O2 Sat Monitoring; Complete Time: 14:58 rn Administered Medications: 14:57 Drug: Lasix 40 mg Route: IVP; Site: right antecubital; aj Disposition: 08/23/18 16:46 Hospitalization ordered by Aguilar Alvarez for Inpatient Admission. Preliminary diagnosis are Unspecified combined systolic (congestive) and diastolic (congestive) heart failure, Pulmonary edema, Dyspnea, unspecified. - Bed requested for Telemetry/MedSurg (Inpatient). - Status is Inpatient Admission. jd3 - Condition is Stable. - Problem is new. - Symptoms have improved. UTI on Admission? No Signatures: Dispatcher [employer] EDMS Kimberley Moe RN Gladys Harris RN Kin Gurrola MD MD rn Fitzgerald, Diane, RN RN df Davies, Jonathon, RN RN jd3 Corrections: (The following items were deleted from the chart) 18:53 16:46 Hospitalization Ordered by Aguilar Alvarez MD for Inpatient Admission. Preliminary df diagnosis is Unspecified combined systolic (congestive) and diastolic (congestive) heart failure; Pulmonary edema; Dyspnea, unspecified. Bed requested for Telemetry/MedSurg (Inpatient). Status is Inpatient Admission. Condition is Stable. Problem is new. Symptoms have improved. UTI on Admission? No. rn 20:22 18:53 08/23/2018 16:46 Hospitalization Ordered by Aguilar Alvarez MD for Inpatient jd3 Admission. Preliminary diagnosis is Unspecified combined systolic (congestive) and diastolic (congestive) heart failure; Pulmonary edema; Dyspnea, unspecified. Bed requested for Telemetry/MedSurg (Inpatient). Status is Inpatient Admission. Condition is Stable. Problem is new. Symptoms have improved. UTI on Admission? No. df
[2018-08-23 17:07] LABS: Blood Morphology Comment NOT SEEN (NOT SEEN); Platelet Estimate ADEQ; Urine White Blood Cell Casts OK
[2018-08-23] MEDS ORDERED: ACETAMINOPHEN 500 MG TAB PO PRN (17:58)
[2018-08-23] MEDS ORDERED: ONDANSETRON 4 MG/2 ML VIAL IV PRN (17:58)
[2018-08-23] MEDS ORDERED: GLUCAGON 1 MG/VIAL IM PRN (18:00)
[2018-08-23] MEDS ORDERED: D50W 25 GM/50 ML SYRINGE IV PRN (18:00)
[2018-08-23] MEDS: INSULIN -REGULAR HUMAN 50 UNIT/0.5 ML ML SQ SCH (22:03)
--- NOTE | 2018-08-23 22:06 | EKG ---
Test Date: 2018-08-23 Test Time: 15:09:12 Medical Lab Technologist: LILI MEASUREMENT RESULTS: Intervals: Rate: 93 CT: QRSD: 82 QT: 334 QTc: 415 [place]: P: CT: QRS: -34 T: 67 INTERPRETIVE STATEMENTS: Atrial fibrillation Left axis deviation Anterior infarct, age undetermined Abnormal ECG Compared to ECG 04/24/2018 13:49:22 Left-axis deviation now present Myocardial infarct finding now present Electronically Signed On 08-23-18 22:05:51 CDT by Richar Grimes
--- NOTE | 2018-08-24 05:52 | P.HP ---
Certification for Inpatient Patient admitted to: Inpatient With expected LOS: >2 Midnights Practitioner: I am a practitioner with admitting privileges, knowledge of patient current condition, hospital course, and medical plan of care. Services: Services provided to patient in accordance with Admission requirements found in Title 42 Section 412.3 of the Code of Federal Regulations Patient History Date of Service: 08/23/18 Reason for admission: Acute on chronic diastolic CHF History of Present Illness: Mr Oneal is a 73-year-old male with history of hypertension, chronic atrial fibrillation, chronic diastolic CHF, insulin-dependent diabetes mellitus, who came to ER complaining of shortness of breath. His symptoms start about 2 days ago, and progressively was getting worse. He denied any fever or chills. He has had dry cough as well. No history of chest pain or palpitation. He has similar symptoms in the past when he had CHF exacerbation. At arrival his O2 sat was 85% on room air. Laboratory work remarkable for normal WBC count, increasing creatinine level compared with his baseline, hyponatremia and hyperglycemic. EKG shows atrial fibrillation without any acute ST abnormality. Chest x-ray remarkable for bibasilar infiltrate more on the right consistent with fluid overload. Allergies No Known Allergies Allergy (Verified 08/24/18 02:43) Home medications list reviewed: Yes Home Medications: Sotalol HCl [Betapace*] 80 mg PO DAILY 01/13/17 Atorvastatin Calcium 10 mg PO BEDTIME 08/23/18 Furosemide [Lasix*] 40 mg PO DAILY 08/23/18 Gabapentin [Neurontin*] 300 mg PO BID 08/23/18 Insulin Glargine Human [Lantus*] 40 units SQ DAILY 08/23/18 Lansoprazole 30 mg PO DAILY 08/23/18 Lisinopril 40 mg PO DAILY 08/23/18 Metformin HCl 1,000 mg PO DAILY 08/23/18 Rivaroxaban [Xarelto] 20 mg PO BEDTIME 08/23/18 Tamsulosin HCl 0.4 mg PO BEDTIME 08/23/18 - Past Medical/Surgical History Has patient received pneumonia vaccine in the past: No Diabetic: Yes -: high blood pressure -: diabetes -: Afib -: CHF -: heart stent -: neck fusion -: right hand surgery - Family History Mother -: Lung disease Notes: mesothelioma Father -: Diabetes, Cancer - Social History Smoking Status: Former smoker Alcohol use: Yes CD- Drugs: No Caffeine use: No Place of Residence: Home Review of Systems 10-point ROS is otherwise unremarkable Physical Examination - Vital Signs Temperature: 97.6 F Blood Pressure: 139/85 Pulse: 127 Respirations: 16 Pulse Ox (%): 94 - Physical Exam General: Alert, In no apparent distress HEENT: Atraumatic, PERRLA, Mucous membr. moist/pink, EOMI, Sclerae nonicteric Neck: Supple, 2+ carotid pulse no bruit, No LAD, Without JVD or thyroid abnormality Respiratory: Normal air movement, Crackles/rales (Bibasilar rales) Cardiovascular: Normal S1 S2, Irregular heart rate/rhythm Gastrointestinal: Normal bowel sounds, No tenderness Musculoskeletal: No tenderness Integumentary: No rashes Neurological: Normal speech, Normal strength at 5/5 x4 extr, Normal tone, Normal affect Lymphatics: No axilla or inguinal lymphadenopathy - Studies Laboratory Data (last 24 hrs) 08/23/18 14:50: WBC 10.3, Hgb 16.8, Hct 49.8 H, Plt Count 241 08/23/18 14:50: Sodium 128 L, Potassium 4.3, BUN 52 H, Creatinine 2.10 H, Glucose 431 H*, Total Bilirubin 1.3 H, AST 32, ALT 38, Alkaline Phosphatase 91 Microbiology Data (last 24 hrs): 08/23/18 14:55 Nasopharnyx Influenza Type A Antigen Screen - Final 08/23/18 14:55 Nasopharnyx Influenza Type B Antigen Screen - Final Assessment and Plan - Problems (Diagnosis) (1) Acute respiratory failure Current Visit: Yes Status: Acute Qualifiers: Respiratory failure complication: hypoxia Qualified Code(s): J96.01 - Acute respiratory failure with hypoxia (2) Acute on chronic diastolic CHF (congestive heart failure) Current Visit: Yes Status: Acute (3) Acute kidney injury superimposed on chronic kidney disease Current Visit: Yes Status: Acute (4) Hyperglycemia Current Visit: Yes Status: Acute (5) Hyponatremia Current Visit: Yes Status: Acute (6) A-fib Current Visit: No Status: Chronic Qualifiers: Atrial fibrillation type: chronic Qualified Code(s): I48.2 - Chronic atrial fibrillation (7) Diabetes Current Visit: No Status: Chronic Qualifiers: Diabetes mellitus type: type 2 Diabetes mellitus copra sampler insulin use: without longterm use Diabetes mellitus complication status: without complication Qualified Code(s): E11.9 - Type 2 diabetes mellitus without complications (8) HTN (hypertension) Current Visit: No Status: Chronic Qualifiers: Hypertension type: essential hypertension Qualified Code(s): I10 - Essential (primary) hypertension - Plan The patient will be admitted to the hospital due to acute respiratory failure with hypoxia, secondary to acute on chronic diastolic CHF. Will continue with IV diuretics. Monitor renal function in the morning to adjust diuresis, continued SSI for blood sugar control. - Advance Directives Does patient have a Living Will: Yes Does patient have a Durable POA for Healthcare: Yes - Code Status/Comfort Care Code Status Assessed: Yes Code Status: Full Code
[2018-08-24 06:17] LABS: Potassium 4.5 mmol/L (3.5-5.1); Protein, Total 7.8 g/dL (6.4-8.2)
[2018-08-24 06:17] LABS: Urine Appearance CLEAR; Urine Bilirubin NEGATIVE (NEG); Urine Blood TRACE (NEG); Urine Color YELLOW; Urine Glucose 3+ (NEG); Urine Protein 1+ (NEG); Urine pH 5.5 (5.0-7.0)
[2018-08-24 06:23] LABS: Absolute Lymphocytes (CBC) 0.5 K/uL (0.7-4.9); Absolute Monocytes 0.7 K/uL (0.1-1.3); Basophils % 0.2 % (0-1.3); Eosinophils % 0.1 % (0-4.4); Hematocrit 46.2 % (39.6-49.0); Lymphocytes % 5.9 % (15.3-44.8); MCH 31.6 pg (27.0-35.0); MCV 94.6 fL (80-100); Monocytes % 7.3 % (3.3-12.3); RBC Red Blood Cell Count 4.88 M/uL (4.33-5.43)
[2018-08-24 06:49] LABS: Urine Microscopic Reflex ORDER UMIC
[2018-08-24 07:03] LABS: Urine Bacteria LOADED /HPF (NONE SEEN); Urine Culture Reflex Order REFLEXED; Urine Mucus 1+ /HPF (NONE SEEN)
[2018-08-24 07:04] LABS: Urine Amorphous Sediment 1+ /HPF (NONE SEEN)
[2018-08-24 07:54] LABS: Blood Morphology Comment NOT SEEN (NOT SEEN); Platelet Estimate ADEQ
[2018-08-24] MEDS ORDERED: PNEUMOCOCCAL VACCINE 0.5 ML IMVAC ONE (08:00)
[2018-08-24] MEDS: INSULIN -REGULAR HUMAN 50 UNIT/0.5 ML ML SQ SCH ×4 (08:20→20:41)
[2018-08-24] MEDS: LISINOPRIL 20 MG TAB PO SCH (08:23)
[2018-08-24] MEDS: LISINOPRIL 10 MG TAB PO SCH ×2 (08:24→09:00)
[2018-08-24] MEDS ORDERED: FUROSEMIDE 40 MG/4 ML VIAL IV SCH (09:00)
[2018-08-24] MEDS: SOTALOL HCL 80 MG TAB PO SCH (09:57)
[2018-08-24] MEDS: INSULIN GLARGINE 100 UNITS/ML SQ SCH (11:25)
--- NOTE | 2018-08-24 15:11 | PN ---
Subjective: The patient is seen and examined. Chart reviewed, and case discussed with RN. The patient shortness of breath is not back to baseline. Having significant amount of cough and sputum production. Code Status: Full. Medications: List reviewed. Review of Systems: Negative except as above. Physical Examination: Vital Signs: Temperature 97, heart rate 103, blood pressure 147/64, respirations 20, O2 of 92% on 3 L via nasal cannula. General: Awake, alert, oriented x3. Some mild distress. An elderly male, ill appearing, obese. CV: S1, S2. Irregularly irregular. Peripheral pulses present. Respiratory: Diminished breath sounds. No crackles heard. No wheezes or stridor. Gastrointestinal: Abdomen is soft, nontender, nondistended. Positive bowel sounds. No guarding or rigidity. Extremities: No clubbing or cyanosis. The patient has 3+ edema, bilateral lower extremities. Neuro: Cranial nerves 2 through 12 intact grossly. No focal neurological deficit. Speech is normal. Laboratory Data: Sodium 129, potassium 4.5, chloride 98, CO2 of 33, BUN of 27, creatinine 2, glucose 374, calcium 8.9, albumin 3. WBC 9.2, H and H 15.4 and 46.2, platelets 243, neutrophils 86.5%. Urine culture is pending. Influenza screen is negative. Blood cultures are also pending as well as sputum cultures. Assessment: A 73-year-old male with: 1. Acute respiratory failure with hypoxia, secondary to congestive heart failure. 2. [id number] diastolic congestive heart failure. We will continue with congestive heart failure guidelines. The patient is on lisinopril. continue with Lasix for diuresis. We will monitor I's and O's, daily weight. Continue fluid-restricted diet. We will consult Cardiology. We will obtain echocardiogram. 3. Gqqez-do-hoseqvt kidney injury. Creatinine is improving, but not back to baseline. Stage 3. 4. Diabetes mellitus type 2 with hyperglycemia, uncontrolled. We will check hemoglobin A1c. We will restart home insulin dose. We will adjust sliding scale insulin to moderate. 5. Chronic atrial fibrillation, rate controlled. The patient is on anticoagulation. We will continue to monitor on telemetry. 6. Hyponatremia, hypovolemic, unclear etiology. We will continue to monitor the sodium level. 7. Essential hypertension. We will resume home medications. 8. Neuropathy. 9. Gastroesophageal reflux disease. We will continue PPI. 10. Benign prostatic hyperplasia with nocturia. Continue tamsulosin. 11. Overweight, BMI 29.8. Counseled. 12. Gastrointestinal and deep venous thrombosis prophylaxis addressed. The patient is on PPI and takes Xarelto for atrial fibrillation. Plan: We will continue to diurese. Flu screen is negative. White count is normal. Doubt any pneumonia. We will repeat chest x-ray in a.m. Consult Cardiology. Likely discharge home in the next 48 to 72 hours. The patient will need home health with CHF program. KARINA Voice ID: [id number] Report ID: [id number] GISSELL
--- NOTE | 2018-08-24 15:29 | ECHO ---
HEIGHT: 5 ft 9 in WEIGHT: 202 lb 0 oz DATE OF STUDY: 08/24/[address]: 2-DIMENSIONAL: YES M.MODE: YES DOPPLER: YES COLOR FLOW: YES TDS: NO PORTABLE: NO DEFINITY: NO BUBBLE STUDY: NO DIAGNOSIS: CONGESTIVE HEART FAILURE/ ATRIAL FIBRILLATION CARDIAC HISTORY: CATHERIZATION: NO SURGERY: NO PROSTHETIC VALVE: NO PACEMAKER: NO MEASUREMENTS (cm) DIASTOLIC (NORMALS) SYSTOLIC (NORMALS) IVSd 1.3 (0.6-1.2) LA Diam 3.8 (1.9-4.0) LVEF 71% LVIDd 3.4 (3.5-5.7) LVIDs 2.1 (2.0-3.5) %FS 39% LVPWd 1.3 (0.6-1.2) Ao Diam 2.7 (2.0-3.7) 2 DIMENSIONAL ASSESSMENT: RIGHT ATRIUM: NORMAL LEFT ATRIUM: DILATED RIGHT VENTRICLE: NORMAL LEFT VENTRICLE: LEFT VENTRICULAR HYPERTROPHY TRICUSPID VALVE: NORMAL MITRAL VALVE: NORMAL PULMONIC VALVE: NORMAL AORTIC VALVE: NORMAL PERICARDIAL EFFUSION: NONE AORTIC ROOT: NORMAL LEFT VENTRICULAR WALL MOTION: NORMAL. DOPPLER/COLOR FLOW: MILD MITRAL REGURGITATION AND TRICUSPID REGURGITATION. ESTIMATED RIGHT VENTRICULAR SYSTOLIC PRESSURE 55-60 MMHG. MODERATE PULMONARY HYPERTENSION. COMMENTS: NORMAL LEFT VENTRICULAR EJECTION FRACTION. DILATED LEFT ATRIUM. LEFT VENTRICULAR HYPERTROPHY. MILD MITRAL REGURGITATION AND TRICUSPID REGURGITATION. MODERATE PULMONARY HYPERTENSION. ATRIAL FIBRILLATION. TECHNOLOGIST: GUILLE LANE
[2018-08-24] MEDS ORDERED: RIVAROXABAN 15 MG TABLET PO SCH (17:00)
[2018-08-24] MEDS: FUROSEMIDE 40 MG/4 ML VIAL IV SCH (17:35)
[2018-08-24] MEDS: RIVAROXABAN 20 MG TABLET PO SCH (18:17)
[2018-08-24] MEDS ORDERED: GUAIFENESIN/CODEINE 5ML UCUP PO PRN (18:23)
[2018-08-24] MEDS ORDERED: ALBUTEROL 2.5 MG/3 ML NEB SOL NEB PRN (18:23)
[2018-08-24] MEDS ORDERED: ALBUTEROL 2.5 MG/3 ML NEB SOL ONE (18:38)
--- NOTE | 2018-08-24 19:30 | CON ---
Chief Complaint: Shortness of breath. History Of Present Illness: The patient notes weight gain, orthopnea, pedal edema, dyspnea, dyspnea on exertion, orthopnea and cough, all accumulating gradually over about 3 days. The patient has norm al ejection fraction. He has coronary heart disease. The last time we did a cardiac cath, all of hi s stents were patent. He has had nuclear stress test since then, that looked good. His most recent echocardiogram is from April 2018 and shows that the ejection fraction was within normal range. There is evidence of poor left ventricular compliance and LVH. The patient does not have a concept of sod ium restriction. He does not use a salt shaker and that is about all he does to reduce sodium intake . Medications: Outpatient medications have been sotalol 80 b.i.d., atorvastatin, lansoprazole, lisinop ril 40, rivaroxaban 20, Flomax, metformin, insulin, gabapentin, furosemide. Past Medical History: Significant for diastolic congestive heart failure, atrial fibrillation, coron robin heart disease, diabetes, hypertension. Physical Examination: General: He is alert, oriented, appears to be in mild respiratory distress, sitting. HEENT: Unremarkable. Lungs: Diffuse crackles up to the scapula. Heart: Within normal limits. Abdomen: Soft. Extremities: 2+ edema. Distal pulses are diminished, but palpable. Diagnostic Data: His electrocardiogram shows atrial fibrillation, anterior infarct, heart rate 93. Laboratory Data: Shows normal hemoglobin, hematocrit, normal troponins. Blood sugars were over 400 when he came in, they are getting better now. His creatinine is 2. Recommendation: I think we should do an echo to see if the changes in his EKG actually are consisten t with an anterior infarct or if we can call it a nonspecific EKG abnormality. He needs more diuresi s than he has had, and I think we should get an echo. Very likely with his creatinine above 2, the L asix 40 IV may not be very effective. SH/MODL Voice ID: [id number] Report ID: [id number]
[2018-08-24] MEDS: TAMSULOSIN 0.4 MG SR CAP PO SCH (20:40)
[2018-08-24] MEDS: ATORVASTATIN 10 MG TAB PO SCH (20:40)
[2018-08-24] MEDS: BENZONATATE 100 MG CAP PO SCH (20:42)
[2018-08-24] MEDS ORDERED: GABAPENTIN 300 MG CAP PO SCH (21:00)
[2018-08-25 01:16] LABS: Arterial Blood Carboxyhemoglob 1.5 % (0-1.5); Blood Gas Oxyhemoglobin 91.1 % (94-97); Blood O2 Saturation 93.1 % (92-98.5)
[2018-08-25 04:45] LABS: Arterial Blood Carboxyhemoglob 1.8 % (0-1.5); Blood Gas Oxyhemoglobin 83.3 % (94-97); Blood O2 Saturation 85.3 % (92-98.5)
[2018-08-25 06:09] LABS: Absolute Lymphocytes (CBC) 0.2 K/uL (0.7-4.9); Absolute Monocytes 0.1 K/uL (0.1-1.3); Absolute Neutrophil 5.3 K/uL (1.8-8.0); Basophils % 0.2 % (0-1.3); Eosinophils % 0.1 % (0-4.4); Hematocrit 44.5 % (39.6-49.0); Lymphocytes % 4.4 % (15.3-44.8); MCH 31.5 pg (27.0-35.0); MCV 93.3 fL (80-100); MPV 9.9 fL (7.6-11.3); Monocytes % 1.9 % (3.3-12.3); RBC Red Blood Cell Count 4.77 M/uL (4.33-5.43)
[2018-08-25] MEDS: PANTOPRAZOLE 40MG TABLET PO SCH (06:21)
[2018-08-25 06:26] LABS: Albumin 2.6 g/dL (3.4-5.0); Potassium 3.7 mmol/L (3.5-5.1); Protein, Total 7.3 g/dL (6.4-8.2)
[2018-08-25] MEDS: INSULIN -REGULAR HUMAN 50 UNIT/0.5 ML ML SQ SCH ×4 (07:30→20:25)
--- NOTE | 2018-08-25 07:55 | RAD REPORT ---
EXAM DESCRIPTION: [facility] Single View08/25/2018 4:55 am CLINICAL HISTORY: Shortness of breath COMPARISON: August 23, 2008 CT FINDINGS: Mild bilateral pulmonary opacities have partially resolved. The heart is normal size IMPRESSION: Partial resolution in mild bilateral pulmonary opacities which may represent interstiti al pulmonary edema
--- NOTE | 2018-08-25 08:09 | RAD REPORT ---
EXAM DESCRIPTION: CT - Head Brain Wo Cont - 08/25/2018 7:51 am CLINICAL HISTORY: Alteration of awareness/confusion COMPARISON: 2008 TECHNIQUE: Computed axial tomography of the head was obtained. IV contrast was not requested. All CT scans are performed using dose optimization technique as appropriate and may include automated exposure control or mA/KV adjustment according to patient size. FINDINGS: An intracranial bleed is not seen . The ventricles are normal in caliber. No extra-axial fluid collection is noted. A small low-density area within the left cerebellum probabl y represents an old lacunar infarction. Mild low-density areas within periventricular, deep and subco rtical white matter likely represent ischemic changes secondary to small vessel disease. Fluid within the left maxillary sinus is present IMPRESSION: No acute intracranial abnormality is seen. If patient's symptoms persist MRI of the bra in would be recommended. Fluid within the left maxillary sinus may acute sinusitis
[2018-08-25] MEDS: LISINOPRIL 20 MG TAB PO SCH ×2 (09:00→09:31)
[2018-08-25] MEDS: INSULIN GLARGINE 100 UNITS/ML SQ SCH (09:00)
[2018-08-25] MEDS ORDERED: CEFTRIAXONE 1 GM/NS 50 ML 1 GM/50 ML BAG IV SCH (09:00)
[2018-08-25] MEDS: FUROSEMIDE 40 MG/4 ML VIAL IV SCH ×2 (09:31→17:00)
[2018-08-25] MEDS: BENZONATATE 100 MG CAP PO SCH ×4 (09:32→20:25)
[2018-08-25] MEDS: CEFTRIAXONE/SWI 1gm 1 GM/10 ML SYR IVP SCH (09:32)
[2018-08-25] MEDS: SOTALOL HCL 80 MG TAB PO SCH ×2 (09:32→11:31)
[2018-08-25] MEDS ORDERED: AZITHROMYCIN IV 500 MG in NA CHLORIDE 0.9% 250 ML IVPB SCH (10:00)
[2018-08-25 10:06] LABS: Arterial Blood Carboxyhemoglob 1.2 % (0-1.5); Blood Gas Oxyhemoglobin 95.8 % (94-97); Blood O2 Saturation 97.6 % (92-98.5)
--- NOTE | 2018-08-25 10:43 | P.CNS ---
Date of Consult: 08/25/18 Reason for Consult: Respiratory failure Chief Complaint: Respiratory failure History of Present Illness: Patient is 73 years of age nonverbal on a BiPAP admitted with shortness of breath lower extremity edema renal insufficiency hypoxic hypercapnic respiratory failure was placed on BiPAP admitted to the floor [place] serial observation and serial ABGs he still remains hypoxic hypercapnic this morning oriented to place Allergies No Known Allergies Allergy (Verified 08/24/18 02:43) Home medications list reviewed: Yes Home Medications: Sotalol HCl [Betapace*] 80 mg PO DAILY 01/13/17 Atorvastatin Calcium 10 mg PO BEDTIME 08/23/18 Furosemide [Lasix*] 40 mg PO DAILY 08/23/18 Gabapentin [Neurontin*] 300 mg PO BID 08/23/18 Insulin Glargine Human [Lantus*] 40 units SQ DAILY 08/23/18 Lansoprazole 30 mg PO DAILY 08/23/18 Lisinopril 40 mg PO DAILY 08/23/18 Metformin HCl 1,000 mg PO DAILY 08/23/18 Rivaroxaban [Xarelto] 20 mg PO BEDTIME 08/23/18 Tamsulosin HCl 0.4 mg PO BEDTIME 08/23/18 - Past Medical/Surgical History Diabetic: Yes -: high blood pressure -: diabetes -: Afib -: CHF -: heart stent -: neck fusion -: right hand surgery - Family History Mother Medical History: Lung disease Notes: mesothelioma Father Medical History: Diabetes, Cancer - Social History Smoking Status: Unknown if ever smoked Alcohol use: Yes CD- Drugs: No Caffeine use: No Place of Residence: Home Review of Systems is unable to be obtained Physical Examination Temp Pulse Resp BP Pulse Ox 97.4 F 93 H 20 112/64 99 08/25/18 08:00 08/25/18 09:31 08/25/18 08:00 08/25/18 09:31 08/25/18 08:00 General: Unresponsive HEENT: Atraumatic Neck: Supple Respiratory: Clear to auscultation bilaterally, Diminished Cardiovascular: Edema (3+ edema), Irregular heart rate/rhythm Gastrointestinal: Normal bowel sounds, Soft and benign - Problems (1) Respiratory failure Current Visit: Yes Status: Acute Plan: Patient is 73 years of age admitted with increasing shortness of breath lower extremity edema mildly worsening renal function he has COPD diastolic dysfunction former smoker patient's BNP is significantly elevated pro calcitonin is elevated chest x-ray shows some interstitial changes no evidence of pneumonia urinalysis is also negative patient is on Xarelto patient quit smoking at the age of 39 continue with BiPAP repeat blood gases withhold intubation unless condition deteriorates Dc Zithromax had low-dose prednisone for now x-ray changes has improved patient is on Lasix Qualifiers: Chronicity: acute on chronic
[2018-08-25] MEDS: predniSONE 20 MG TAB PO SCH ×2 (11:31→20:25)
[2018-08-25 12:46] LABS: Arterial Blood Carboxyhemoglob 1.4 % (0-1.5); Blood Gas Oxyhemoglobin 84.4 % (94-97)
--- NOTE | 2018-08-25 12:55 | PN ---
Date of Progress Note: 08/25/2018 History: The patient is seen and examined. Chart reviewed and case discussed with RN and Dr. Up. The patient having some decreased level of mentation. Had to be placed on BiPAP overnight. Having some difficulty breathing and confusion, much more lethargic. Review of Systems: Limited due to patient's medical condition. Medications: List reviewed. Physical Examination: Vital Signs: Temperature 97.4, heart rate 93, blood pressure 112/64, respirations 20, O2 95% on BiPAP, 50% FiO2. General: Asleep, but arousable. Oriented to self and place. In moderate respiratory distress. Ill-appearing elderly male. CV: S1 and S2, irregularly irregular. Peripheral pulses present. Respiratory: Diminished breath sounds bilaterally. Some wheezing heard. The patient is slightly tachypneic, but no use of accessory muscles. Gastrointestinal: Abdomen is soft, nontender, nondistended. Positive bowel sounds. Extremities: No clubbing or cyanosis. The patient does have pedal edema. Neurologic: Nonfocal. Laboratory Data: Sodium 137, potassium 3.7, chloride 96, CO2 of 36, BUN 52, creatinine 1.8, glucose 103, hemoglobin A1c is 10%. Lactate 1.5, calcium 9.1, albumin 2.6. Procalcitonin is 2.24. ABG shows pH 7.3, pCO2 67, PO2 108, bicarb 31. WBC 5.7, H and H 15 and 44.5, platelets 237, neutrophils 93%. Blood cultures no growth to date. Sputum cultures are pending. Urine culture is growing mixed mechelle. CT head personally reviewed shows no acute intracranial abnormality. Fluid within the left maxillary sinus may indicate acute sinusitis. Small low density area within the left cerebellum probably represents an old lacunar infarction. Chest x-ray personally reviewed shows partial resolution in the mild bilateral pulmonary opacities, which may represent interstitial pulmonary edema. Assessment And Plan: A 73-year-old male with: 1. Acute respiratory failure with hypoxia and hypercapnia secondary to congestive heart failure. The patient now on BiPAP. We will increase rate, decrease FiO2. We will transfer to the ICU. Pulmonology has been consulted. Chest x-ray shows improvement in pulmonary opacities. The patient does have elevated procalcitonin level. We will add IV antibiotics. 2. Acute on chronic diastolic congestive heart failure. Continue with CHF guidelines, lisinopril, Lasix. Continue daily weights. Chest x-ray shows improvement. Monitor I's and O's strictly. Appreciate Dr. Grimes' input. Echocardiogram shows EF of 71%. Also shows dilated left atrium, left ventricular hypertrophy. Mild mitral regurgitation, and tricuspid regurgitation. 3. Moderate pulmonary hypertension. 4. Hypertensive heart disease. 5. Acute on chronic kidney injury, stage 3. Creatinine improving, however, not back to baseline. Continue with close monitoring of creatinine. Likely due to ATN. Avoid NSAIDs. 6. Diabetes mellitus type 2 with hyperglycemia, uncontrolled. Hemoglobin A1c is 10%. We will adjust insulin dose. Continue sliding scale. Monitor Accu- Cheks. 7. Chronic atrial fibrillation, rate controlled. The patient is on Xarelto. 8. Hypervolemic hyponatremia. Sodium levels now normalized. Continue to monitor. 9. Essential hypertension, stable. 10. Neuropathy. We will hold gabapentin due to the patient's decreased mental status. 11. Gastroesophageal reflux disease. Continue PPI. 12. Benign prostatic hypertrophy with nocturia. Continue Flomax. 13. Gastrointestinal and deep venous thrombosis prophylaxis addressed. Plan: The patient will be transferred to ICU for closer monitoring for repeat ABG and continue BiPAP. /JENISE Voice ID: [id number] Report ID: [id number] [email or web address]
[2018-08-25] MEDS: IPRATROPIUM BROM 0.5MG/2.5ML NEB SCH ×2 (13:48→20:00)
[2018-08-25] MEDS: ARFORMOTEROL TARTRATE 15 MCG/2 ML VIAL.NEB NEB SCH ×2 (13:48→20:00)
--- NOTE | 2018-08-25 14:01 | PN ---
Mr. Oneal has gotten worse with his respiratory status. He is somnolent, and a blood gas indicates t he pCO2 close to 70, pH less than 7.3, being transferred to ICU. He is on BiPAP. He may require int ubation. He still is in atrial fibrillation, still is on rivaroxaban. Heart rate is adequately cont rolled. His ejection fraction is normal. I do not think he has so much congestive heart failure as probably an infectious process in the lungs and CO2 retention now. MICHELE/MODEdil Voice ID: [id number] Report ID: [id number]
[2018-08-25] MEDS: RIVAROXABAN 20 MG TABLET PO SCH (17:00)
[2018-08-25] MEDS: ATORVASTATIN 10 MG TAB PO SCH (20:25)
[2018-08-25] MEDS: TAMSULOSIN 0.4 MG SR CAP PO SCH (20:25)
[2018-08-26] MEDS: IPRATROPIUM BROM 0.5MG/2.5ML NEB SCH ×4 (01:20→20:10)
[2018-08-26] MEDS: PANTOPRAZOLE 40MG TABLET PO SCH (05:25)
[2018-08-26 05:58] LABS: Absolute Lymphocytes (CBC) 0.4 K/uL (0.7-4.9); Absolute Monocytes 0.2 K/uL (0.1-1.3); Absolute Neutrophil 7.2 K/uL (1.8-8.0); Basophils % 0.2 % (0-1.3); Hematocrit 45.9 % (39.6-49.0); Lymphocytes % 4.5 % (15.3-44.8); MCH 31.3 pg (27.0-35.0); MCV 94.5 fL (80-100); Monocytes % 2.7 % (3.3-12.3); RBC Red Blood Cell Count 4.86 M/uL (4.33-5.43)
[2018-08-26 06:04] LABS: Albumin 2.3 g/dL (3.4-5.0); Bilirubin Total 0.7 mg/dL (0.2-1.0); Potassium 3.8 mmol/L (3.5-5.1); Protein, Total 7.2 g/dL (6.4-8.2)
[2018-08-26] MEDS: ARFORMOTEROL TARTRATE 15 MCG/2 ML VIAL.NEB NEB SCH ×2 (07:36→20:10)
[2018-08-26] MEDS: INSULIN -REGULAR HUMAN 50 UNIT/0.5 ML ML SQ SCH ×4 (08:05→21:17)
[2018-08-26 08:33] LABS: Blood Morphology Comment NOT SEEN (NOT SEEN); Platelet Estimate ADEQ; Urine White Blood Cell Casts OK
[2018-08-26] MEDS: SOTALOL HCL 80 MG TAB PO SCH (08:44)
[2018-08-26] MEDS: INSULIN GLARGINE 100 UNITS/ML SQ SCH (08:44)
[2018-08-26] MEDS: FUROSEMIDE 40 MG/4 ML VIAL IV SCH ×2 (08:45→16:43)
[2018-08-26] MEDS: predniSONE 20 MG TAB PO SCH ×2 (08:45→21:15)
[2018-08-26] MEDS: LISINOPRIL 20 MG TAB PO SCH (08:46)
[2018-08-26] MEDS: CEFTRIAXONE/SWI 1gm 1 GM/10 ML SYR IVP SCH (08:46)
[2018-08-26] MEDS: BENZONATATE 100 MG CAP PO SCH ×3 (08:46→21:14)
--- NOTE | 2018-08-26 09:39 | P.PN ---
Subjective Date of Service: 08/26/18 Chief Complaint: Respiratory failure Subjective: Improving (Patient is doing much better according the patient was sick for about 4 days he has episodes of intermittent wheezing coughing spells probably has underlying obstructive airways disease was not use any bronchodilators) Review of Systems Unremarkable Physical Examination - Vital Signs Temperature: 97.2 F Blood Pressure: 101/59 Pulse: 101 Respirations: 23 Pulse Ox (%): 96 - Physical Exam General: Alert, Oriented x3 HEENT: Atraumatic, Other Respiratory: Expiratory wheezes Cardiovascular: No edema, Normal S1 S2 Assessment & Plan - Problems (Diagnosis) (1) Respiratory failure Current Visit: Yes Status: Acute Plan: Patient is doing much better respiratory failure resolved is a nasal cannula oxygen suspect he has underlying obstructive airways disease he has had respiratory problems for a long time and not using any bronchodilators at home he has intermittent wheezing and chest congestion former for pack-a-day smoker quit in 1941 patient will need long-acting bronchodilators patient follow up with pulmonary function testing Qualifiers: Chronicity: acute on chronic
[2018-08-26] MEDS ORDERED: ACETAMINOPHEN 500 MG TAB PO PRN (13:14)
[2018-08-26] MEDS ORDERED: GLUCAGON 1 MG/VIAL IM PRN (13:15)
[2018-08-26] MEDS ORDERED: ONDANSETRON 4 MG/2 ML VIAL IV PRN (13:15)
[2018-08-26] MEDS ORDERED: D50W 25 GM/50 ML SYRINGE IV PRN (13:15)
[2018-08-26] MEDS: RIVAROXABAN 20 MG TABLET PO SCH (16:42)
--- NOTE | 2018-08-26 21:05 | PN ---
Date of Progress Note: 08/26/2018 Subjective: The patient is seen and examined. Chart reviewed and case discussed with RN and Dr. Ольга degroot. The patient doing well, now off BiPAP. Awake and alert. Denies any pain, still having some significant amount of cough and shortness of breath. Review of Systems: Negative except as above. Medications: List reviewed. Physical Examination: Vital Signs: Temperature 97.6, heart rate 102, blood pressure 112/59, respirations 24, O2 92% on 3 L via nasal cannula. General: Awake, alert, oriented x3, in some mild respiratory distress. Elderly male, ill-appearing. CV: S1, S2. Peripheral pulses present. Irregularly irregular rhythm. Respiratory: Diminished breath sounds. Some rales and rhonchi heard. No stridor. Some mild wheezi ng is heard as well. The patient is slightly tachypneic. Use of accessory muscles present. Gastrointestinal: Abdomen is soft, nontender, nondistended. Positive bowel sounds. Extremities: No clubbing, cyanosis. The patient does have peripheral edema. Neurologic: Nonfocal. Laboratory Data: Sodium 134, potassium 3.8, chloride 94, CO2 30, BUN 65, creatinine 1.8, glucose 218 , calcium 8.7, WBC 7.8, H and H 15.2 and 45.9, platelets 270, neutrophils 92%. Blood cultures, no gr owth to date. Urine culture, mixed mechelle. Sputum culture, 3+ gram-negative rods. ID and sensitivit y pending. Assessment: A 73-year-old male with: 1.Acute respiratory failure, now off BiPAP, likely secondary to chronic obstructive pulmonary diseas e as well as pneumonia. Appreciate Dr. Up's input. We will continue with supplemental oxygen via nasal cannula. We will step down from ICU. 2.Acute on chronic diastolic congestive heart failure. Continue with diuresis, lisinopril and Lasix . Continue daily weights. Monitor I's and O's, fluid restriction. Cardiology on board. EF is 71%. 3.Acute on chronic obstructive pulmonary disease exacerbation. The patient has undiagnosed obstruct claribel airway disease. The patient was a heavy smoker in the past. We will continue with breathing isabella atments and supplemental oxygen. 4.Moderate pulmonary hypertension. 5.Hypertensive heart disease. 6.Acute on chronic kidney injury, stage III. Creatinine improved, however, still above baseline, juan m ardon due to acute tubular necrosis. We will avoid NSAIDs. Continue monitoring creatinine. 7.Diabetes mellitus type 2 with hyperglycemia, uncontrolled without long-term use of insulin. Hemog lobin A1c is 10%. Continue sliding scale insulin. Monitor Accu-Cheks. 8.Chronic atrial fibrillation, rate controlled on Xarelto. 9.Hypervolemic hyponatremia. Sodium level normalized. Continue to monitor. 10.Essential hypertension, stable. 11.Neuropathy, will receive gabapentin as the patient's mental status has improved. 12.Gastroesophageal reflux disease. Continue PPI. 13.Benign prostatic hypertrophy with nocturia. Continue Flomax. 14.Gastrointestinal and deep venous thrombosis prophylaxis addressed. Plan: 1.Step down from ICU. Continuous pulse ox. 2.Respiratory infection with gram-negative bacteria. ID and sensitivity pending. We will continue IV antibiotics. Follow up on final results. 3.Length of stay greater than 2 midnights. KARINA Voice ID: [id number] Report ID: [id number]
[2018-08-26] MEDS: ATORVASTATIN 10 MG TAB PO SCH (21:14)
[2018-08-26] MEDS: TAMSULOSIN 0.4 MG SR CAP PO SCH (21:14)
[2018-08-26] MEDS: NA CHLORIDE 0.9% 1,000 ML IV SCH (21:22)
[2018-08-26] MEDS: GUAIFENESIN/CODEINE 5ML UCUP PO PRN (21:22)
[2018-08-27] MEDS: IPRATROPIUM BROM 0.5MG/2.5ML NEB SCH ×4 (02:00→19:50)
[2018-08-27] MEDS: GUAIFENESIN/CODEINE 5ML UCUP PO PRN ×2 (03:34→13:55)
[2018-08-27] MEDS: ALBUTEROL 2.5 MG/3 ML NEB SOL NEB PRN (03:40)
[2018-08-27] MEDS: INSULIN -REGULAR HUMAN 50 UNIT/0.5 ML ML SQ SCH ×4 (07:57→20:53)
[2018-08-27] MEDS: PANTOPRAZOLE 40MG TABLET PO SCH (07:57)
[2018-08-27] MEDS: BENZONATATE 100 MG CAP PO SCH ×3 (07:58→20:38)
[2018-08-27] MEDS: CEFTRIAXONE/SWI 1gm 1 GM/10 ML SYR IVP SCH (07:58)
[2018-08-27] MEDS: predniSONE 20 MG TAB PO SCH ×2 (07:58→20:39)
[2018-08-27] MEDS: INSULIN GLARGINE 100 UNITS/ML SQ SCH (07:58)
[2018-08-27] MEDS: LISINOPRIL 20 MG TAB PO SCH (07:59)
[2018-08-27] MEDS: SOTALOL HCL 80 MG TAB PO SCH (07:59)
[2018-08-27] MEDS: NA CHLORIDE 0.9% 1,000 ML IV SCH (08:00)
[2018-08-27] MEDS: FUROSEMIDE 40 MG/4 ML VIAL IV SCH ×2 (08:00→16:40)
[2018-08-27] MEDS: ARFORMOTEROL TARTRATE 15 MCG/2 ML VIAL.NEB NEB SCH ×2 (08:32→19:50)
--- NOTE | 2018-08-27 15:49 | P.PN ---
Subjective Date of Service: 08/27/18 Chief Complaint: Respiratory failure Patient seen and examined at bedside. No family at bedside. Case discussed with nursing staff. Patient reports improved symptoms though still complaining of cough and sputum production. Denies any chest pain, shortness of with left, dizziness, vision changes, headaches or lightheadedness. Review of Systems As noted above Physical Examination - Vital Signs Temperature: 97.2 F Blood Pressure: 121/75 Pulse: 84 Respirations: 20 Pulse Ox (%): 94 - Physical Exam General: Alert, In no apparent distress, Oriented x3 HEENT: Atraumatic, PERRLA, EOMI Neck: Supple, JVD not distended Respiratory: Diminished, Crackles/rales, Rhonchi/gurgles Cardiovascular: Normal S1 S2, Irregular heart rate/rhythm (Irregularly irregular ) Gastrointestinal: Normal bowel sounds, No tenderness Musculoskeletal: No tenderness Integumentary: No rashes Neurological: Normal speech, Normal tone, Normal affect Lymphatics: No axilla or inguinal lymphadenopathy Assessment And Plan - Plan A 73-year-old male with: - Acute respiratory failure, now off BiPAP, likely secondary to chronic obstructive pulmonary disease as well as pneumonia. Appreciate Dr. Up's input. We will continue with supplemental oxygen via nasal cannula. - lower respiratory tract infection: positive sputum cultures, for Klebsiella and Proteus. Continue IV Rocephin - Acute on chronic diastolic congestive heart failure. Continue with diuresis, lisinopril and Lasix. Continue daily weights. Monitor I's and O's, fluid restriction. Cardiology on board. EF is 71%. - Acute on chronic obstructive pulmonary disease exacerbation. The patient has undiagnosed obstructive airway disease. The patient was a heavy smoker in the past. We will continue with breathing treatments and supplemental oxygen. - Moderate pulmonary hypertension. - Hypertensive heart disease. - Acute on chronic kidney injury, stage III. Creatinine improved, however, still above baseline, likely due to acute tubular necrosis. We will avoid NSAIDs. Continue monitoring creatinine. - Diabetes mellitus type 2 with hyperglycemia, uncontrolled without long-term use of insulin. Hemoglobin A1c is 10%. Continue sliding scale insulin. Monitor Accu-Cheks. - Chronic atrial fibrillation, rate controlled on Xarelto. - Hypervolemic hyponatremia. Sodium level normalized. Continue to monitor. - Essential hypertension, stable. - Neuropathy, will receive gabapentin as the patient's mental status has improved. - Benign prostatic hypertrophy with nocturia. Continue Flomax. DVT prophylaxis: Lovenox GI prophylaxis: PPI Diet: Heart healthy Disposition: Pending symptomatic treatment. Likely discharge tomorrow on oral antibiotics. Physician Review: Patient Assessed, Agree with Above Assessment and Plan Time Spent Managing PTS Care (In Minutes): 55
[2018-08-27] MEDS ORDERED: BISACODYL E.C. 5 MG TAB PO PRN (15:56)
[2018-08-27] MEDS: RIVAROXABAN 20 MG TABLET PO SCH (16:41)
[2018-08-27] MEDS: ATORVASTATIN 10 MG TAB PO SCH (20:38)
[2018-08-27] MEDS: TAMSULOSIN 0.4 MG SR CAP PO SCH (20:40)
[2018-08-28] MEDS: ALBUTEROL 2.5 MG/3 ML NEB SOL NEB PRN (01:24)
[2018-08-28] MEDS: IPRATROPIUM BROM 0.5MG/2.5ML NEB SCH ×4 (01:24→20:00)
[2018-08-28] MEDS: GUAIFENESIN/CODEINE 5ML UCUP PO PRN (04:03)
[2018-08-28 06:22] VITALS: BMI 28.5
[2018-08-28] MEDS: ARFORMOTEROL TARTRATE 15 MCG/2 ML VIAL.NEB NEB SCH ×2 (07:35→20:00)
[2018-08-28] MEDS: INSULIN GLARGINE 100 UNITS/ML SQ SCH (08:34)
[2018-08-28] MEDS: CEFTRIAXONE/SWI 1gm 1 GM/10 ML SYR IVP SCH (08:35)
[2018-08-28] MEDS: INSULIN -REGULAR HUMAN 50 UNIT/0.5 ML ML SQ SCH ×4 (08:35→20:51)
[2018-08-28] MEDS: PANTOPRAZOLE 40MG TABLET PO SCH (08:36)
[2018-08-28] MEDS: LISINOPRIL 20 MG TAB PO SCH (08:36)
[2018-08-28] MEDS: BENZONATATE 100 MG CAP PO SCH ×3 (08:36→20:53)
[2018-08-28] MEDS: predniSONE 20 MG TAB PO SCH ×2 (08:36→20:52)
[2018-08-28] MEDS: FUROSEMIDE 40 MG/4 ML VIAL IV SCH ×2 (08:37→16:48)
[2018-08-28] MEDS: SOTALOL HCL 80 MG TAB PO SCH (08:37)
--- NOTE | 2018-08-28 14:34 | P.PN ---
Subjective Date of Service: 08/28/18 Chief Complaint: Respiratory failure Patient seen and examined at bedside. No family at bedside. Case discussed with nursing staff. Patient reports improved symptoms though still complaining of cough and sputum production. Denies any chest pain, shortness of with left, dizziness, vision changes, headaches or lightheadedness. Review of Systems As noted Physical Examination - Vital Signs Temperature: 97.4 F Blood Pressure: 139/72 Pulse: 86 Respirations: 16 Pulse Ox (%): 93 - Physical Exam General: Alert, In no apparent distress HEENT: Atraumatic, PERRLA, EOMI Neck: Supple, JVD not distended Respiratory: Clear to auscultation bilaterally, Normal air movement Cardiovascular: Regular rate/rhythm, Normal S1 S2 Gastrointestinal: Normal bowel sounds, No tenderness Musculoskeletal: No tenderness Integumentary: No rashes Neurological: Normal speech, Normal tone, Normal affect Assessment And Plan - Plan A 73-year-old male with: - Acute respiratory failure, now off BiPAP, likely secondary to chronic obstructive pulmonary disease as well as pneumonia. Appreciate Dr. Up's input. We will discharge him on long-acting bronchodilator and oral antibiotics. We will continue with supplemental oxygen via nasal canula. Try been weaned off of oxygen patient goes home oxygen - lower respiratory tract infection: positive sputum cultures, for Klebsiella and Proteus. Continue IV Rocephin - Acute on chronic diastolic congestive heart failure. Continue with diuresis, lisinopril and Lasix. Continue daily weights. Monitor I's and O's, fluid restriction. Cardiology on board. EF is 71%. - Acute on chronic obstructive pulmonary disease exacerbation. The patient has undiagnosed obstructive airway disease. The patient was a heavy smoker in the past. We will continue with breathing treatments and supplemental oxygen. - Moderate pulmonary hypertension. - Hypertensive heart disease. - Acute on chronic kidney injury, stage III. Creatinine improved, however, still above baseline, likely due to acute tubular necrosis. We will avoid NSAIDs. Continue monitoring creatinine. - Diabetes mellitus type 2 with hyperglycemia, uncontrolled without long-term use of insulin. Hemoglobin A1c is 10%. Continue sliding scale insulin. Monitor Accu-Cheks. - Chronic atrial fibrillation, rate controlled on Xarelto. - Hypervolemic hyponatremia. Sodium level normalized. Continue to monitor. - Essential hypertension, stable. - Neuropathy, will receive gabapentin as the patient's mental status has improved. - Benign prostatic hypertrophy with nocturia. Continue Flomax. DVT prophylaxis: Lovenox GI prophylaxis: PPI Diet: Heart healthy Disposition: Pending symptomatic treatment. Likely discharge tomorrow on oral antibiotics and a long-acting bronchodilator. Discharge Plan: Home Plan to discharge in: 24 Hours Physician Review: Patient Assessed, Agree with Above Assessment and Plan Time Spent Managing PTS Care (In Minutes): 45
--- NOTE | 2018-08-28 15:46 | PN ---
Date of Progress Note: 08/28/2018 Subjective: Mr. Oneal is 73, admitted to Dr. Li on August 23, 2018. He has been followed by Dr. Grimes for COPD; CO2 retention; atrial fibrillation, on Xarelto; COPD; CHF with normal ejection frac tion. The patient had been on BiPAP, but this has been weaned. He is improved dramatically. He has a pneumonia. Dr. Up is following. Mr. Oneal is a DNR. He is Dr. Nolan's patient. He is not o n home oxygen, which is being planned. We agree with present medical management. His atrial fibrill ation rate is controlled. He is on Xarelto. He is not a great candidate for beta-carmelita. He may d o better with calcium channel carmelita as far as rate control such as Cardizem or verapamil for the lo ng run. LEI/JOHNL Voice ID: [id number] Report ID: [id number]
[2018-08-28] MEDS: RIVAROXABAN 20 MG TABLET PO SCH (16:50)
[2018-08-28] MEDS: TAMSULOSIN 0.4 MG SR CAP PO SCH (20:52)
[2018-08-28] MEDS: ATORVASTATIN 10 MG TAB PO SCH (20:52)
[2018-08-29] MEDS: IPRATROPIUM BROM 0.5MG/2.5ML NEB SCH ×4 (01:29→19:59)
[2018-08-29] MEDS: GUAIFENESIN/CODEINE 5ML UCUP PO PRN ×2 (02:44→21:08)
[2018-08-29 05:45] LABS: Absolute Lymphocytes (CBC) 0.6 K/uL (0.7-4.9); Absolute Monocytes 0.6 K/uL (0.1-1.3); Absolute Neutrophil 13.6 K/uL (1.8-8.0); Basophils % 0.4 % (0-1.3); Hematocrit 50.3 % (39.6-49.0); Lymphocytes % 4.3 % (15.3-44.8); MCH 30.8 pg (27.0-35.0); MCV 94.1 fL (80-100); MPV 9.3 fL (7.6-11.3); Monocytes % 3.9 % (3.3-12.3); RBC Red Blood Cell Count 5.34 M/uL (4.33-5.43)
[2018-08-29 06:07] LABS: Potassium 5.8 mmol/L (3.5-5.1)
[2018-08-29] MEDS ORDERED: GLUCAGON 1 MG/VIAL IM PRN (06:54)
[2018-08-29] MEDS ORDERED: D50W 25 GM/50 ML SYRINGE IV ONE (06:54)
[2018-08-29] MEDS ORDERED: D50W 25 GM/50 ML SYRINGE IV PRN (06:54)
[2018-08-29] MEDS ORDERED: INSULIN -REGULAR HUMAN 50 UNIT/0.5 ML ML IV ONE (06:55)
--- NOTE | 2018-08-29 07:05 | P.PN ---
Date of Service: 08/29/18 Chart reviewed. Called regarding multiple abnormal labs. Patient's potassium was elevated. Patient with metabolic alkalosis. Patient was pre renal azotemia. Patient's Lasix increased because of bilateral pulmonary edema on August 26. Patient's chest x-ray from this morning reveals that bilateral pulmonary opacities have completely cleared up. We can hold Lasix for this morning. We will go ahead and recheck electrolytes but will need to correct potassium if it is elevated. Patient also looks to have contraction metabolic alkalosis and severe prerenal azotemia so will hold today's dose of Lasix. We will correct patient's hyperkalemia with 1 amp of D50 & adjusted dose of insulin(renal failure), hold am dose of steroids, hold lisinopril. Patient's echocardiogram revealed a normal ejection fraction with pulmonary hypertension but no diastolic dysfunction. We should be able to back off on the diuretics if okay with Cardiology.
[2018-08-29] MEDS: ARFORMOTEROL TARTRATE 15 MCG/2 ML VIAL.NEB NEB SCH ×2 (07:20→19:59)
[2018-08-29] MEDS: INSULIN -REGULAR HUMAN 50 UNIT/0.5 ML ML SQ SCH ×4 (07:20→21:09)
[2018-08-29] MEDS: PANTOPRAZOLE 40MG TABLET PO SCH (07:25)
[2018-08-29 07:53] LABS: Albumin 2.5 g/dL (3.4-5.0); Bilirubin Total 0.5 mg/dL (0.2-1.0); Magnesium 2.4 mg/dL (1.8-2.4); Phosphorus 2.8 mg/dL (2.5-4.9)
[2018-08-29 08:02] LABS: Potassium 5.5 mmol/L (3.5-5.1)
--- NOTE | 2018-08-29 08:53 | RAD REPORT ---
EXAM DESCRIPTION: [facility] Single View08/29/2018 6:42 am CLINICAL HISTORY: Chest pain COMPARISON: August 25 FINDINGS: Bilateral pulmonary opacities appear mostly resolved. Heart is normal size
[2018-08-29] MEDS: INSULIN GLARGINE 100 UNITS/ML SQ SCH (09:26)
[2018-08-29] MEDS: CEFTRIAXONE/SWI 1gm 1 GM/10 ML SYR IVP SCH (09:27)
[2018-08-29] MEDS: BENZONATATE 100 MG CAP PO SCH ×3 (09:28→21:08)
[2018-08-29] MEDS: SOTALOL HCL 80 MG TAB PO SCH (09:28)
[2018-08-29] MEDS: FUROSEMIDE 40 MG/4 ML VIAL IV SCH (09:28)
[2018-08-29 09:36] LABS: Uric Acid 7.5 mg/dL (3.5-7.2)
--- NOTE | 2018-08-29 10:08 | RAD REPORT ---
EXAM DESCRIPTION: US - Renal Ultrasound-Complete - 08/29/2018 9:50 am CLINICAL HISTORY: Acute kidney injury COMPARISON: None. FINDINGS: The right kidney measures 9.8 x 5.3 x 4.9 cm. The left kidney measures 11.6 x 5.2 x 5.3 c m. Cortical thickness is normal. Echogenicity is increased typical for a nonspecific medical renal di sease. No hydronephrosis or suspicious renal mass. Bladder is contracted around a Frye catheter. IMPRESSION: No hydronephrosis or suspicious renal mass. Increased cortical echogenicity consistent with medical renal disease process.
--- NOTE | 2018-08-29 11:53 | P.PN ---
Subjective Date of Service: 08/29/18 Chief Complaint: Respiratory failure Subjective: Improving (Patient is doing much better nasal cannula oxygen renal function is improving) Review of Systems Unremarkable Physical Examination - Vital Signs Temperature: 97.4 F Blood Pressure: 165/94 Pulse: 88 Respirations: 18 Pulse Ox (%): 96 - Physical Exam General: Alert, Cooperative Respiratory: Clear to auscultation bilaterally Cardiovascular: No edema, Normal S1 S2 - Studies Microbiology Data (last 24 hrs): 08/23/18 15:05 Blood - Blood Aerobic Blood Culture - Final No growth in 5 days. 08/23/18 15:05 Blood - Blood Anaerobic Blood Culture - Final No growth in 5 days. 08/23/18 14:50 Blood - Blood Aerobic Blood Culture - Final No growth in 5 days. 08/23/18 14:50 Blood - Blood Anaerobic Blood Culture - Final No growth in 5 days. Assessment & Plan - Problems (Diagnosis) (1) Respiratory failure Current Visit: Yes Status: Acute Plan: Patient has respiratory failure has resolved is currently on nasal cannula oxygen I suspect that he has underlying obstructive airways disease renal function improving patient was also hyperkalemia normal left ventricular function continue with bronchodilators consider discharging him on Advair 500 twice a day for not need outpatient pulmonary function testing patient's lisinopril was stopped room-air sat 90% patient's sputum cultures were also positive for Klebsiella and Proteus start on cefuroxime 500 mg twice a day Qualifiers: Chronicity: acute on chronic Physician Review: Patient Assessed, Agree with Above Assessment and Plan
--- NOTE | 2018-08-29 15:00 | P.PN ---
Subjective Date of Service: 08/29/18 Chief Complaint: Respiratory failure Patient seen and examined at bedside. No family at bedside. Case discussed with nursing staff. Patient reports improved symptoms. Denies any chest pain, shortness of with left, dizziness, vision changes, headaches or lightheadedness. Review of Systems As noted above Physical Examination - Vital Signs Temperature: 97.1 F Blood Pressure: 112/72 Pulse: 90 Respirations: 18 Pulse Ox (%): 94 - Physical Exam General: Alert, In no apparent distress, Oriented x3 HEENT: Atraumatic, PERRLA, EOMI Neck: Supple, JVD not distended Respiratory: Clear to auscultation bilaterally, Normal air movement Cardiovascular: Regular rate/rhythm, Normal S1 S2 Gastrointestinal: Normal bowel sounds, No tenderness Musculoskeletal: No tenderness Integumentary: No rashes Neurological: Normal speech, Normal tone, Normal affect - Studies Microbiology Data (last 24 hrs): 08/23/18 15:05 Blood - Blood Aerobic Blood Culture - Final No growth in 5 days. 08/23/18 15:05 Blood - Blood Anaerobic Blood Culture - Final No growth in 5 days. 08/23/18 14:50 Blood - Blood Aerobic Blood Culture - Final No growth in 5 days. 08/23/18 14:50 Blood - Blood Anaerobic Blood Culture - Final No growth in 5 days. Assessment And Plan - Plan A 73-year-old male with: - Hyperkalemia: Potassium 5.8 this morning. Lasix was held this morning as was his prednisone and lisinopril. He was given 1 amp of D50 and insulin added adjustment for renal failure. We have switched his IV Lasix oral, who may be able to discontinue as his repeat chest x-ray with resolved effusion and echo with normal ejection fraction of 71%.. Will discuss with cardiology. Need to monitor with labs. Nephrology on board, recommendations appreciated. - Metabolic alkalosis - Acute respiratory failure, now off BiPAP, likely secondary to chronic obstructive pulmonary disease as well as pneumonia. Appreciate Dr. Up's input. We will discharge him on long-acting bronchodilator and oral antibiotics. We will continue with supplemental oxygen via nasal canula. He will need outpatient followup with pulmonology - lower respiratory tract infection: positive sputum cultures, for Klebsiella and Proteus. Discontinue IV Rocephin and start p.o. cefuroxime - Acute on chronic diastolic congestive heart failure. Hold Lasix, lisinopril due to hyperkalemia a.m. metabolic alkalosis. Repeat chest x-ray with resolved effusions. We may be able to discontinue diuresis as echo was normal with 71% ejection fraction, if cardiology is okay with it. - Acute on chronic obstructive pulmonary disease exacerbation. The patient has undiagnosed obstructive airway disease. The patient was a heavy smoker in the past. We will continue with breathing treatments and supplemental oxygen. - Moderate pulmonary hypertension. - Hypertensive heart disease. - Acute on chronic kidney injury, stage III. Creatinine improved, however, still above baseline, likely due to acute tubular necrosis. We will avoid NSAIDs. Continue monitoring creatinine. - Diabetes mellitus type 2 with hyperglycemia, uncontrolled without long-term use of insulin. Hemoglobin A1c is 10%. Continue sliding scale insulin. Monitor Accu-Cheks. - Chronic atrial fibrillation, rate controlled on Xarelto. - Hypervolemic hyponatremia. Sodium level normalized. Continue to monitor. - Essential hypertension, stable. - Neuropathy, will receive gabapentin as the patient's mental status has improved. - Benign prostatic hypertrophy with nocturia. Continue Flomax. DVT prophylaxis: Lovenox GI prophylaxis: PPI Diet: Heart healthy Disposition: Pending symptomatic treatment. Likely discharge tomorrow on oral antibiotics and a long-acting bronchodilator. Physician Review: Patient Assessed, Agree with Above Assessment and Plan Time Spent Managing PTS Care (In Minutes): 55
--- NOTE | 2018-08-29 16:26 | CON ---
Date of Consultation: 08/29/2018 Additional Consulting Physician: Dr. Edwards. Reason For Consultation: Elevated BUN and creatinine, hypertension. History Of Present Illness: This is a pleasant 73-year-old gentleman with significant past medical h istory of coronary artery disease, diabetes complicated with neuropathy, no retinopathy, hypertension , pulmonary hypertension, no congestive heart failure, ejection fraction of 71% on echocardiogram don e recently. The patient came to the hospital complaining of shortness of breath, found to have conge stive heart failure, started on the diuresis. On admission, creatinine was 2.1. The patient's basel ine creatinine was 1.4 with GFR of 49, back in April 2018. The patient also complaining of cough with yellowish sputum. The patient denied any fever, any chills. During the hospitalization after the d iuresis, creatinine down to 1.7. The patient denied any nausea, any vomiting. The patient being as outpatient on Lasix and an LOU inhibitor with metformin. Past Medical History: Include, 1.Hypertension. 2.Pulmonary hypertension. 3.Coronary artery disease. No congestive heart failure. 4.Diabetes complicated with neuropathy. No retinopathy. 5.Chronic kidney disease, baseline creatinine 1.4. GFR of 49, back in April 2018. Home Medication: Includes, 1.Sotalol. 2.Atorvastatin. 3.Lasix 40. 4.Gabapentin. 5.Insulin. 6.Lisinopril 40 daily. 7.Metformin. 8.Xarelto. 9.Flomax. Past Surgical History: Include, 1.PTCA. 2.Neck effusion. 3.Hand surgery. Family History: Positive for COPD and diabetes with cancers. Social History: Ex-smoker, deny alcohol. Denies drugs abuse. Review of Systems: Head and Neck: No red eye. No ear pain. GI: No nausea, no vomiting. : No polyuria. No dysuria. No hematuria. ENGINEERING TECH: Not applicable. Respiratory: Has shortness of breath. Has cough. Cardiovascular: No chest pain. Endocrine: No polydipsia. Skin: No rash. Neurologic: No neuropathy. Physical Examination: Vital Signs: When I saw the patient, blood pressure of 165/95, pulse of 88. Chest: Crackles bilateral, more on the right side. Heart: S1-S2 regular. Abdomen: Soft. Nontender. Extremities: No edema. Laboratory Data: WBC 14.9, H and H 16.5/50.3, platelets 268. Sodium 137, potassium 5.5, bicarb 38, BUN 69, creatinine 1.7, uric acid 7.5, calcium 9.2, PTH of 95. On admission, creatinine was 2.1 with GFR of 31, potassium was started being elevated yesterday with 5.8. Echocardiogram showing ejection fraction of 71%. Chest x-ray, clearing the infiltration. Renal ultr asound showing 9.8 x 11.60 echogenic. No hydronephrosis. Current Medications: Current medications the patient on its include, 1.Albuterol. 2.Arformoterol. 3.Flomax. 4.Xarelto. 5.Atorvastatin. 6.Lisinopril. 7.Sotalol. 8.Lasix 80 b.i.d. 9.Breathing treatment. 10.Prednisone. Assessment And Plan: 1.Acute kidney injury on chronic kidney disease secondary to cardiorenal/hypertension nephrosclerosi s-diabetes nephropathy, normal size kidney, proteinuric, nonnephrotic with slightly over diuresed. I am going to go ahead and decrease Lasix to 80 mg p.o. daily and we will monitor the patient. Given the hyperkalemia, I am going to hold the LOU inhibitor for the time being and we will monitor the pat ient. 2.Hypertension, not controlled. Given the pulmonary hypertension, I am going to start the patient o n calcium channel carmelita, and we will follow up the patient. Could not add any spironolactone given the hyperkalemia. 3.Hyperkalemia, possible secondary to renal failure and LOU inhibitor. LOU inhibitor has been disco ntinued. The patient had normal creatine kinase. I am going to go ahead and send for a thyroid-stim ulating hormone. 4.Secondary hyperparathyroid. Calcium and phosphorus on the normal side. We will continue to monit or. 5.Chronic obstructive pulmonary disease exacerbation, as by Pulmonary. JAZMIN/JENISE Voice ID: [id number] Report ID: [id number]
[2018-08-29] MEDS ORDERED: predniSONE 20 MG TAB PO SCH (17:00)
[2018-08-29] MEDS: AMLODIPINE 10 MG TAB PO SCH (17:06)
[2018-08-29] MEDS: RIVAROXABAN 20 MG TABLET PO SCH (17:07)
[2018-08-29 21:06] VITALS: O2SAT 93
[2018-08-29] MEDS: CEFUROXIME 250 MG TAB PO SCH (21:08)
[2018-08-29] MEDS: ATORVASTATIN 10 MG TAB PO SCH (21:08)
[2018-08-29] MEDS: TAMSULOSIN 0.4 MG SR CAP PO SCH (21:09)
[2018-08-30] MEDS: IPRATROPIUM BROM 0.5MG/2.5ML NEB SCH ×3 (02:02→13:20)
[2018-08-30 04:12] LABS: Albumin 2.3 g/dL (3.4-5.0); Phosphorus 2.6 mg/dL (2.5-4.9); Potassium 4.7 mmol/L (3.5-5.1); Thyroid Stimulating Hormone 0.161 uIU/mL (0.360-3.740)
[2018-08-30] MEDS: PANTOPRAZOLE 40MG TABLET PO SCH (07:23)
[2018-08-30] MEDS: INSULIN -REGULAR HUMAN 50 UNIT/0.5 ML ML SQ SCH ×2 (07:30→12:23)
[2018-08-30] MEDS: ARFORMOTEROL TARTRATE 15 MCG/2 ML VIAL.NEB NEB SCH (07:35)
[2018-08-30] MEDS ORDERED: FUROSEMIDE 40 MG TABLET PO SCH (09:00)
[2018-08-30] MEDS: INSULIN GLARGINE 100 UNITS/ML SQ SCH (10:17)
[2018-08-30] MEDS: BENZONATATE 100 MG CAP PO SCH ×2 (10:18→14:38)
[2018-08-30] MEDS: CEFUROXIME 250 MG TAB PO SCH (10:18)
[2018-08-30] MEDS: SOTALOL HCL 80 MG TAB PO SCH (10:19)
[2018-08-30] MEDS: AMLODIPINE 10 MG TAB PO SCH (10:19)
[2018-08-30 12:33] VITALS: BP 130/69; TEMP 96.8
--- NOTE | 2018-08-30 13:56 | P.DS ---
Admission Date: 08/23/18 Discharge Date: 08/30/18 Disposition: DC HOME/HOME HEALTH CARE Discharge Condition: GOOD Reason for Admission: Respiratory failure Consultations: Pulmonology, Dr. Up Nephrology Dr. Pastrana Cardiology Brief History of Present Illness: Mr Oneal is a 73-year-old male with history of hypertension, chronic atrial fibrillation, chronic diastolic CHF, insulin-dependent diabetes mellitus, who came to ER complaining of shortness of breath. His symptoms start about 2 days ago, and progressively was getting worse. He denied any fever or chills. He has had dry cough as well. No history of chest pain or palpitation. He has similar symptoms in the past when he had CHF exacerbation. At arrival his O2 sat was 85% on room air. Laboratory work remarkable for normal WBC count, increasing creatinine level compared with his baseline, hyponatremia and hyperglycemic. EKG shows atrial fibrillation without any acute ST abnormality. Chest x-ray remarkable for bibasilar infiltrate more on the right consistent with fluid overload. Hospital Course: Patient was admitted to the hospital for acute respiratory failure with hypoxia and hypercapnia. This was thought to be likely secondary to CHF exacerbation with a possible component of COPD as well as pneumonia. He was diuresed with IV diuretics. He was having worsening respiratory distress, BiPAP was started and patient was transferred to the ICU. Pulmonology was consulted. If the chest x-ray did show some pulmonary opacities and he had elevated pro calcitonin level therefore IV antibiotics were started. He was eventually weaned off BiPAP, as per the respiratory status improved and was transferred back to the floor. Possible COPD involvement: Patient will be discharged on long acting Advair and with instructions to follow up outpatient with pulmonology for further evaluation with pulmonary function tests. Chronic diastolic congestive heart failure: He was continued with the CHF guidelines that include lisinopril, Lasix. His echocardiogram was normal with an ejection fraction of 71%. He did develop hyperkalemia, IV Lasix was held for 1 day as was his prednisone and lisinopril. Then his IV Lasix was switched to oral 80 mg daily. At the time of discharge, he will be discharged on oral Lasix 80 mg daily and with instructions to hold lisinopril until after primary care physician followup. For his acute on chronic kidney disease, stage III: Nephrology was consulted. With diuresis, his kidney function trended up closer to baseline. He was also found to be positive for Klebsiella and Proteus in the sputum. He will be discharged on oral cefuroxime for a total of 12 day course. Otherwise, he remains stable from his hypertension, BPH, diabetes 1 of you. No medication changes in regards to those diseases on discharge. Was instructed to follow up with is primary care physician in 1 week. He was also instructed to follow up with pulmonology in 2 weeks. Patient verbalized understanding of all instructions interactions. He was discharged home in a stable condition and his home health was resumed from prior. Vital Signs/Physical Exam: Temp Pulse Resp BP Pulse Ox 96.8 F 87 18 130/69 93 08/30/18 12:00 08/30/18 12:00 08/30/18 12:00 08/30/18 12:00 08/30/18 12:00 General: Alert, In no apparent distress, Oriented x3 HEENT: Atraumatic, PERRLA, EOMI Neck: Supple, JVD not distended Respiratory: Clear to auscultation bilaterally, Normal air movement Cardiovascular: Regular rate/rhythm, Normal S1 S2 Gastrointestinal: Normal bowel sounds, No tenderness Musculoskeletal: No tenderness Neurological: Normal speech, Normal tone, Normal affect Laboratory Data at Discharge: WBC 14.9 K/uL (4.3-10.9) H D 08/29/18 05:22 Hgb 16.5 g/dL (13.6-17.9) 08/29/18 05:22 Hct 50.3 % (39.6-49.0) H 08/29/18 05:22 Plt Count 268 K/uL (152-406) 08/29/18 05:22 Sodium 141 mmol/L (136-145) 08/30/18 03:27 Potassium 4.7 mmol/L (3.5-5.1) 08/30/18 03:27 BUN 66 mg/dL (7-18) H 08/30/18 03:27 Creatinine 1.50 mg/dL (0.55-1.3) H 08/30/18 03:27 Glucose 130 mg/dL (74-106) H 08/30/18 03:27 Uric Acid 7.5 mg/dL (3.5-7.2) H 08/29/18 07:28 Phosphorus 2.6 mg/dL (2.5-4.9) 08/30/18 03:27 Magnesium 2.4 mg/dL (1.8-2.4) D 08/29/18 07:28 Total Bilirubin 0.5 mg/dL (0.2-1.0) 08/29/18 07:28 AST 15 U/L (15-37) 08/29/18 07:28 ALT 27 U/L (12-78) 08/29/18 07:28 Alkaline Phosphatase 73 U/L (45-117) 08/29/18 07:28 Home Medications: Sotalol HCl [Betapace*] 80 mg PO DAILY 01/13/17 Atorvastatin Calcium 10 mg PO BEDTIME 08/23/18 Gabapentin [Neurontin*] 300 mg PO BID 08/23/18 Insulin Glargine Human [Lantus*] 40 units SQ DAILY 08/23/18 Lansoprazole 30 mg PO DAILY 08/23/18 Metformin HCl 1,000 mg PO DAILY 08/23/18 Rivaroxaban [Xarelto] 20 mg PO BEDTIME 08/23/18 Tamsulosin HCl 0.4 mg PO BEDTIME 08/23/18 Amlodipine [Norvasc*] 10 mg PO DAILY #30 tab 08/30/18 Cefuroxime [Ceftin*] 500 mg PO BID #22 tab 08/30/18 Fluticasone/Salmeterol [Advair Hfa 230-21 Mcg Inhaler] 12 gm IH BID #2 aer.w.adap 08/30/18 Furosemide [Lasix*] 80 mg PO DAILY #30 tab 08/30/18 New Medications: Amlodipine [Norvasc*] 10 mg PO DAILY #30 tab Cefuroxime [Ceftin*] 500 mg PO BID #22 tab Fluticasone/Salmeterol [Advair Hfa 230-21 Mcg Inhaler] 12 gm IH BID #2 aer.w.adap Furosemide [Lasix*] 80 mg PO DAILY #30 tab Patient Discharge Instructions: 1) COPD: He may have an underlying undiagnosed COPD diagnosis. We have sent a prescription for Advair to pharmacy. I would like you to follow up with a [employer] law clerk outpatient for further management and pulmonary function tests. Information for Dr. Up, pulmonology provided. 2) CHF: The were previously taking Lasix. Here dosage has been changed to Lasix 80 mg once a day. Prescription has been sent to your pharmacy. 3) hyperkalemia: You were found to have high potassium levels here in the hospital. His lisinopril, 1 medication were previously taking for high blood pressure has been stopped at this time. Please do not restart it until after seeing his primary care physician in discussing with him. He you have been sent a prescription for amlodipine, of blood pressure medication to replace lisinopril for the time being. 4) you were also found to have an infection in your respiratory tract. You have been sent a prescription for an antibiotic, cefuroxime to complete a course of 12 days. Please follow up with the primary care physician in the next 1 week. Diet: AHA Activity: Ad najma Followup: Owen Nolan DO, DO [Primary Care Provider] - Hugo Up MD [ACTIVE - CAN ADMIT] - Physician Review: Patient Assessed, Agree with Above Assessment and Plan Time spent managing pt's care (in minutes): 55
--- NOTE | 2018-08-31 03:01 | PN ---
Date of Progress Note: 08/30/2018 Subjective: The patient is doing better. No nausea. No vomiting. No shortness of breath. Decreas e Lasix to once a day. Responding very well. Physical Examination: Vital Signs: Blood pressure 140/69, pulse of 87, afebrile. Chest: Clear to auscultation. Heart: S1, S2. Regular. Abdomen: Soft, nontender. Extremities: No edema. Laboratory Data: WBC 14.9, H and H 16.5/50.3, platelets of 268. Sodium 141, potassium 4.7, bicarb 2 8, BUN 66, creatinine 1.5, GFR 46, close to his baseline. Calcium 8.5, phosphorus 2.6. TSH 0.1. Current Medications: The patient on its include Lasix 80 mg daily, amlodipine, Brovana, benzoate, bi sacodyl, cefuroxime, Lasix 80 daily, lisinopril 40 daily, Arformoterol, Xarelto, Flomax. Assessment And Plan: 1.Acute kidney injury secondary to cardiorenal, recovered back, close to baseline. Continue Lasix a t current dose. 2.Hypertension, controlled, optimal. Continue current medication. 3.Marginal hyperkalemia, resolved. 4.Chronic obstructive pulmonary disease exacerbation as by Pulmonary. JAZMIN/JENISE Voice ID: [id number] Report ID: [id number]
== END 2018-08-30 16:47 | disposition home health service (06) | DRG 189 ==
LOC: ER 13:56 → ERHOLD 17:00 → 2ND 19:51 → 3RD-ICU 08-25 10:30 → 4TH 08-26 12:31
PROVIDERS: ADMIT Family Medicine; ATTEND Family Medicine
PROC: 5A09457 Assistance with Respiratory Ventilation, 24-96 Consecutive Hours, Continuous Positive Airway Pressure (ICD-10-PCS; principal; 2018-08-23)
DX: J96.02 Acute respiratory failure with hypercapnia (principal); I50.33 Acute on chronic diastolic (congestive) heart failure; J18.9 Pneumonia, unspecified organism; I13.0 Hypertensive heart and chronic kidney disease with heart failure and stage 1 through stage 4 chronic kidney disease, or unspecified chronic kidney disease; N17.9 Acute kidney failure, unspecified; E87.1 Hypo-osmolality and hyponatremia; J44.0 Chronic obstructive pulmonary disease with (acute) lower respiratory infection; J44.1 Chronic obstructive pulmonary disease with (acute) exacerbation; E87.3 Alkalosis; N25.81 Secondary hyperparathyroidism of renal origin; J96.01 Acute respiratory failure with hypoxia; I48.2 Chronic atrial fibrillation; Z79.01 Long term (current) use of anticoagulants; N18.3 Chronic kidney disease, stage 3 (moderate); E11.22 Type 2 diabetes mellitus with diabetic chronic kidney disease; Z79.4 Long term (current) use of insulin; N40.0 Benign prostatic hyperplasia without lower urinary tract symptoms; Z87.891 Personal history of nicotine dependence; E11.65 Type 2 diabetes mellitus with hyperglycemia; K21.9 Gastro-esophageal reflux disease without esophagitis; E66.3 Overweight; Z68.29 Body mass index [BMI] 29.0-29.9, adult; E11.40 Type 2 diabetes mellitus with diabetic neuropathy, unspecified; Z66 Do not resuscitate; E87.5 Hyperkalemia; E11.21 Type 2 diabetes mellitus with diabetic nephropathy
CPT/HCPCS: 36415; 70450; 71045; 76770; 80048; 80053; 80069; 80076; 81003; 81015; 82550; 82570; 82805; 82947; 82962; 83036; 83605; 83735; 83880; 83970; 84100; 84145; 84156; 84443; 84484; 84550; 85025; 87040; 87070; 87077; 87086; 87088; 87186; 87205; 87804; 93005; 93306; 94640; 94660; 94760; 96374; 99285; J0456; J0696; J1940; J7030; J7512; J7605